=== PATIENT | female | born 1980 | race Caucasian/White ===

== ENCOUNTER 2019-05-17 18:10 | Emergency (ER) | payer OTHER ==
[~2019-05-17] VITALS: Ht 170.2 cm; Wt 106.8 kg
[2019-05-17] MEDS ORDERED: ONDANSETRON PF 4 MG/2 ML VIAL. IVP ONE (18:45)
--- NOTE | 2019-05-17 18:48 | PHYS DOC ---
Adult General Chief Complaint Chief Complaint: NAUSEA/VOMITING/DIARRHA HPI HPI 39-year-old female underlying history of liver disease with previous liver transplant presents to the emergency department complaints of abdominal pain, nausea, vomiting, diarrhea, leg edema and pain. Patient states this is been ongoing x3 weeks, she was admitted to and subsequently discharged. Her primary care physician was unhappy with the care she received at and stated that if symptoms continue to worsen she should return to the emergency department. I attempted to educate this patient with regards to emergency department visits reason for emergencies and reasons to be seen during this pandemic however she did not understand. She stated she came here because her doctor said to do so. Nothing makes her symptoms worse, nothing makes her symptoms better. Patient denies any headache or visual changes, chest pain, shortness of breath. Review of Systems Review of Systems Constitutional: Denies fever or chills [] Respiratory: Denies cough or shortness of breath [] Cardiovascular: No additional information not addressed in HPI [] GI: + abdominal pain, nausea, vomiting, diarrhea[] : Denies dysuria or hematuria [] Musculoskeletal: leg pain Integument: Denies rash or skin lesions [] Neurologic: Denies headache, focal weakness or sensory changes [] All other systems were reviewed and found to be within normal limits, except as documented in this note. Current Medications Current Medications Current Medications Medications (Trade) Dose Ordered Sig/Cait Start Time Stop Time Status Last Admin Dose Admin Ibuprofen (Motrin) 800 mg 1X ONCE 05/17/19 19:30 05/17/19 19:35 DC Ondansetron HCl (Zofran) 4 mg 1X ONCE 05/17/19 18:45 05/17/19 19:08 DC 05/17/19 19:18 4 MG Potassium Chloride (Klor-Con) 40 meq 1X ONCE 05/17/19 19:30 05/17/19 19:31 DC 05/17/19 19:37 40 MEQ Sodium Chloride 1,000 ml @ 1,000 mls/hr 1X ONCE 05/17/19 19:00 05/17/19 19:59 05/17/19 19:18 1,000 MLS/HR Allergies Allergies Allergies Coded Allergies Type Severity Reaction Last Updated Verified Iodine and Iodide Containing Produc Allergy Intermediate 05/17/19 Yes dicyclomine Allergy Intermediate 05/17/19 Yes fentanyl Allergy Intermediate 05/17/19 Yes hydrocodone Allergy Intermediate 05/17/19 Yes ketorolac Allergy Intermediate Hives 05/17/19 Yes levofloxacin Allergy Intermediate 05/17/19 Yes meperidine Allergy Intermediate 05/17/19 Yes tramadol Allergy Intermediate 05/17/19 Yes Physical Exam Physical Exam Constitutional: Well developed, well nourished, no acute distress, non-toxic appearance. [] HENT: Normocephalic, atraumatic, bilateral external ears normal, oropharynx moist, no oral exudates, nose normal. [] Eyes: PERRLA, EOMI, conjunctiva normal, no discharge. [] Cardiovascular:Heart rate regular rhythm, no murmur [] Lungs & Thorax: Bilateral breath sounds clear to auscultation [] Abdomen: Bowel sounds normal, soft, no tenderness, no masses, no pulsatile masses. [] Skin: Warm, dry, no erythema, no rash. [] Back: No tenderness, no CVA tenderness. [] Extremities: No tenderness, ROM intact, no edema. [] Neurologic: Alert and oriented X 3, no focal deficits noted. [] Psychologic: Affect normal, judgement normal, mood normal. [] Current Patient Data Vital Signs Vital Signs Date Time Temp Pulse Resp B/P (MAP) Pulse Ox O2 Delivery O2 Flow Rate FiO2 05/17/19 18:40 98.4 90 18 132/87 (102) 96 Room Air 98.4 Lab Values Laboratory Tests Test 05/17/19 18:38 05/17/19 19:00 Urine Collection Type Unknown Urine Color Yellow Urine Clarity Clear Urine pH 8.5 (<5.0-8.0) Urine Specific [place] 1.015 (1.000-1.030) Urine Protein Negative mg/dL (NEG-TRACE) Urine Glucose (UA) Negative mg/dL (NEG) Urine Ketones (Stick) Negative mg/dL (NEG) Urine Blood Negative (NEG) Urine Nitrite Negative (NEG) Urine Bilirubin Negative (NEG) Urine Urobilinogen Dipstick 1.0 mg/dL (0.2 mg/dL) Urine Leukocyte Esterase Negative (NEG) Urine RBC 0 /HPF (0-2) Urine WBC Occ /HPF (0-4) Urine Squamous Epithelial Cells Mod /LPF Urine Bacteria 0 /HPF (0-FEW) Urine Mucus Mod /LPF White Blood Count 3.6 x10^3/uL (4.0-11.0) L Red Blood Count 3.63 x10^6/uL (3.50-5.40) Hemoglobin 9.3 g/dL (12.0-15.5) L Hematocrit 29.1 % (36.0-47.0) L Mean Corpuscular Volume 80 fL (79-100) Mean Corpuscular Hemoglobin 26 pg (25-35) Mean Corpuscular Hemoglobin Concent 32 g/dL (31-37) Red Cell Distribution Width 22.7 % (11.5-14.5) H Platelet Count 183 x10^3/uL (140-400) Neutrophils (%) (Auto) 57 % (31-73) Lymphocytes (%) (Auto) 20 % (24-48) L Monocytes (%) (Auto) 20 % (0-9) H Eosinophils (%) (Auto) 3 % (0-3) Basophils (%) (Auto) 1 % (0-3) Neutrophils # (Auto) 2.1 x10^3/uL (1.8-7.7) Lymphocytes # (Auto) 0.7 x10^3/uL (1.0-4.8) L Monocytes # (Auto) 0.7 x10^3/uL (0.0-1.1) Eosinophils # (Auto) 0.1 x10^3/uL (0.0-0.7) Basophils # (Auto) 0.0 x10^3/uL (0.0-0.2) Platelet Estimate Pending Prothrombin Time 15.4 SEC (11.7-14.0) H Prothrombin Time INR 1.3 (0.8-1.1) H Sodium Level 139 mmol/L (136-145) Potassium Level 2.9 mmol/L (3.5-5.1) *L Chloride Level 103 mmol/L (98-107) Carbon Dioxide Level 24 mmol/L (21-32) Anion Gap 12 (6-14) Blood Urea Nitrogen 5 mg/dL (7-20) L Creatinine 0.8 mg/dL (0.6-1.0) Estimated GFR (Cockcroft-Gault) 79.9 BUN/Creatinine Ratio 6 (6-20) Glucose Level 84 mg/dL (70-99) Calcium Level 8.3 mg/dL (8.5-10.1) L Magnesium Level 1.3 mg/dL (1.8-2.4) L Total Bilirubin 1.4 mg/dL (0.2-1.0) H Aspartate Amino Transferase (AST) 39 U/L (15-37) H Alanine Aminotransferase (ALT) 15 U/L (14-59) Alkaline Phosphatase 191 U/L (46-116) H Total Protein 6.4 g/dL (6.4-8.2) Albumin 2.4 g/dL (3.4-5.0) L Albumin/Globulin Ratio 0.6 (1.0-1.7) L Lipase 68 U/L (73-393) L Laboratory Tests 05/17/19 19:00 Laboratory Tests 05/17/19 19:00 EKG EKG [] Radiology/Procedures Radiology/Procedures [] Course & Med Decision Making Course & Med Decision Making Pertinent Labs and Imaging studies reviewed. (See chart for details) [] 39-year-old female underlying history of liver disease with previous liver transplant presents to the emergency department complaints of abdominal pain, n ausea, vomiting, diarrhea, leg edema and pain. Patient states this is been ongoing x3 weeks, she was admitted to and subsequently discharged. Her primary care physician was unhappy with the care she received at and stated that if symptoms continue to worsen she should return to the emergency department. I attempted to educate this patient with regards to emergency department visits reason for emergencies and reasons to be seen during this pandemic however she did not understand. She stated she came here because her doctor said to do so. Nothing makes her symptoms worse, nothing makes her symptoms better. Patient denies any headache or visual changes, chest pain, shortness of breath. Labs/Imaging reviewed Potassium/Magnesium replaced in ER Patient states she is unable to take toradol or motrin - she as well has a large allergy list to pain medications KUB reviewed without acute findings Discussed return precautions Encourage po intake (liquids) Dragon Disclaimer Dragon Disclaimer This electronic medical record was generated, in whole or in part, using a voice recognition dictation system. Departure Departure Impression: Primary Impression: Nausea & vomiting Additional Impressions: Diarrhea Hypomagnesemia Hypokalemia Disposition: 01 HOME, SELF-CARE Condition: STABLE Referrals: NON,STAFF (PCP) Patient Instructions: Diarrhea, [id number], Nausea and Vomiting, [id number] Additional Instructions: Recommend fluid resuscitation at home (encourage po intake up to 100 cc/hr) - one 8 oz glass per hour NO acute findings on lab concerning for infection KUB negative for acute process Electrolytes replaced in ER Recommend follow up with PCP as outpatient No findings for acute inpatient admission Patient states she has zofran at home Problem Qualifiers Primary Impression: Nausea & vomiting Vomiting type: unspecified Vomiting Intractability: non-intractable Qualified Codes: R11.2 - Nausea with vomiting, unspecified Additional Impressions: Diarrhea Diarrhea type: unspecified type Qualified Codes: R19.7 - Diarrhea, unspecified SHANNON BO MD May 17, 2019 18:48
[2019-05-17 18:54] LABS: BILIRUBIN,URINE NEGATIVE (NEG); CLARITY,URINE CLEAR; NITRITE,URINE NEGATIVE (NEG); PH,URINE 8.5 (<5.0-8.0); PROTEIN,URINE NEGATIVE (NEG-TRACE)
[2019-05-17] MEDS ORDERED: IV NORMAL SALINE 1000ML BAG 1,000 ML IV ONE (19:00)
[2019-05-17 19:03] LABS: COLOR,URINE YELLOW
[2019-05-17 19:04] LABS: BACTERIA,URINE 0 /HPF (0-FEW); RBC,URINE 0 /HPF (0-2); SQUAMOUS EPITHELIAL CELL,UR MOD /LPF; WBC,URINE OCC /HPF (0-4)
[2019-05-17 19:10] LABS: BASO % 1 % (0-3); EOS # 0.1 x10^3/uL (0.0-0.7); EOS % 3 % (0-3); HEMATOCRIT 29.1 % (36.0-47.0); HEMOGLOBIN 9.3 g/dL (12.0-15.5); LYMPH # 0.7 x10^3/uL (1.0-4.8); LYMPH % 20 % (24-48); MEAN CORPUSCULAR HEMOGLOBIN 26 pg (25-35); MEAN CORPUSCULAR HGB CONC 32 g/dL (31-37); MEAN CORPUSCULAR VOLUME 80 fL (79-100); MONO # 0.7 x10^3/uL (0.0-1.1); MONO % 20 % (0-9); NEUT # 2.1 x10^3/uL (1.8-7.7); NEUT % 57 % (31-73); PLATELET COUNT 183 x10^3/uL (140-400); RED BLOOD COUNT 3.63 x10^6/uL (3.50-5.40); RED CELL DISTRIBUTION WIDTH 22.7 % (11.5-14.5); WHITE BLOOD COUNT 3.6 x10^3/uL (4.0-11.0)
[2019-05-17 19:19] LABS: PROTHROMBIN TIME PATIENT 15.4 SEC (11.7-14.0)
[2019-05-17 19:23] LABS: ALBUMIN 2.4 g/dL (3.4-5.0); ALBUMIN/GLOBULIN RATIO 0.6 (1.0-1.7); CALCIUM 8.3 mg/dL (8.5-10.1); CREATININE 0.8 mg/dL (0.6-1.0); GFR 79.9; TOTAL BILIRUBIN 1.4 mg/dL (0.2-1.0); TOTAL PROTEIN 6.4 g/dL (6.4-8.2)
[2019-05-17 19:25] LABS: POTASSIUM 2.9 mmol/L (3.5-5.1)
[2019-05-17] MEDS ORDERED: POTASSIUM CHLORIDE 20 MEQ TABLET.ER. PO ONE (19:30)
[2019-05-17] MEDS ORDERED: IBUPROFEN 400 MG TABLET. PO ONE (19:30)
[2019-05-17] MEDS ORDERED: MAGNESIUM CHLORIDE ER 64 MG TABLET.ER PO ONE (19:54)
[2019-05-17 20:00] VITALS: BP 132/86
[2019-05-17 20:00] LABS: % ATYL 1 % (0-0); % BANDS 2 % (0-9); % EOS 1 % (0-5); % LYMPHS 12 % (24-48); % MONOS 12 % (0-10); % SEGS 72 % (35-66); PLT ESTIMATE ADEQUATE (ADEQUATE); POLYCHROMASIA SLIGHT
[2019-05-17 20:01] LABS: ANISOCYTOSIS MOD
--- NOTE | 2019-05-17 20:10 | RAD ---
Exam: Abdomen one view INDICATION: Abdominal pain TECHNIQUE: Supine view the abdomen Comparisons: None FINDINGS: Air and stool are noted throughout the colon to level the rectum in a nonobstructive bowel gas pattern. No suspicious masses or calcifications. End-stage degenerative change at the right hip joint. Moderate to severe osteophytic change at the left hip joint. Multilevel spondylotic change in the lower lumbar spine. IMPRESSION: Nonobstructive bowel gas pattern. Degenerative change at the hip joints as described above. Electronically signed by: Louisa Hernandez MD (05/17/2019 8:07 PM) [id number]
== END 2019-05-17 20:17 | disposition home or self-care (01) ==
LOC: ER 18:10
DX: R11.2 Nausea with vomiting, unspecified (principal); R19.7 Diarrhea, unspecified; E83.42 Hypomagnesemia; E87.6 Hypokalemia; Z88.1 Allergy status to other antibiotic agents; Z88.4 Allergy status to anesthetic agent; Z88.5 Allergy status to narcotic agent; Z88.6 Allergy status to analgesic agent; Z91.041 Radiographic dye allergy status; Z88.8 Allergy status to other drugs, medicaments and biological substances
CPT/HCPCS: 36415; 74018; 80053; 81001; 83690; 83735; 85007; 85025; 85610; 96361; 96374; 99284; J2405; J7030

== ENCOUNTER 2021-01-04 17:28 | Emergency (ER) | payer OTHER ==
[~2021-01-04] VITALS: Ht 170.2 cm; Wt 104.5 kg
[~2021-01-04 17:28] MED LIST: ALBU2.5V8 INH; MAGN400T48 PO; POTA10TA12 PO; TACR1CAP5 PO
[2021-01-04] MEDS ORDERED: IV NORMAL SALINE 1000ML BAG 1,000 ML IV ONE (18:00)
--- NOTE | 2021-01-04 18:08 | PHYS DOC ---
Past Medical History Past Medical History: Asthma, CHF, IBS Additional Past Medical Histor: liver transplant 1998 (MATT ABBOTT APRN) Past Surgical History: Additional Past Surgical Histo: transplant liver 1998, shoulder and wrist (MATT ABBOTT APRN) Smoking Status: Never Smoker Alcohol Use: None (MATT ABBOTT APRN) General Adult EDM: Chief Complaint: ABDOMINAL PAIN HPI: HPI: Patient is a 40-year-old female who presents to the emergency department for chronic abdominal pain. Patient reports it is generalized and she rates it 10 out of 10. No treatment prior to arrival. Patient is reporting nausea with one episode of vomiting after attempting to swallow her pills today. She is also reporting diarrhea. She has a history of a liver transplant. She reports that the abdominal pain was so severe that it caused her to fall this morning. She is reporting right hip pain. Patient reports that she is more concerned with her abdominal pain rather than her right hip pain. She has been able to bear weight and ambulate. She denies any loss of bowel or bladder, saddle anesthesias, blood in her stools or vomit, urinary symptoms or fevers. She denies hitting her head and does not believe that she lost consciousness, she does not take any blood thinners. (MATT ABBOTT APRN) Review of Systems: Review of Systems: 14 body systems of the review of systems have been reviewed. See HPI for pertinent positive and negative responses, otherwise all other systems are negative, nonpertinent or noncontributory (MATT ABBOTT APRN) Heart Score: C/O Chest Pain: N/A Risk Factors: Risk Factors: DM, Current or recent (<one month) smoker, HTN, HLP, family history of CAD, obesity. Risk Scores: Score 0 - 3: 2.5% MACE over next 6 weeks - Discharge Home Score 4 - 6: 20.3% MACE over next 6 weeks - Admit for Clinical Observation Score 7 - 10: 72.7% MACE over next 6 weeks - Early Invasive Strategies (MATT ABBOTT APRN) Current Medications: Current Medications Medications (Trade) Dose Ordered Sig/Cait Start Time Stop Time Status Last Admin Dose Admin Sodium Chloride 1,000 ml @ 1,000 mls/hr 1X ONCE 01/04/21 18:00 01/04/21 18:59 (MATT ABBOTT APRN) Allergies: Allergies: Allergies Coded Allergies Type Severity Reaction Last Updated Verified Iodine and Iodide Containing Produc Allergy Intermediate 05/17/19 Yes dicyclomine Allergy Intermediate 05/17/19 Yes fentanyl Allergy Intermediate 05/17/19 Yes hydrocodone Allergy Intermediate 05/17/19 Yes ketorolac Allergy Intermediate Hives 05/17/19 Yes levofloxacin Allergy Intermediate 05/17/19 Yes meperidine Allergy Intermediate 05/17/19 Yes oxycodone Allergy Intermediate HIVES, HALLUCINATIONS 08/26/20 Yes tramadol Allergy Intermediate 05/17/19 Yes (MATT ABBOTT APRN) Physical Exam: PE: Constitutional: Well developed, well nourished, no acute distress, non-toxic appearance. [] HENT: Normocephalic, atraumatic, bilateral external ears normal, oropharynx moist, no oral exudates, nose normal. [] Eyes: PERRL, EOMI, conjunctiva normal, no discharge. [] Neck: Normal range of motion, n no stridor Cardiovascular:Heart rate regular rhythm, no murmur [] Lungs & Thorax: Bilateral breath sounds clear to auscultation [] Abdomen: Bowel sounds normal, soft, obese, generalized abdominal tenderness with palpation, no masses, no pulsatile masses. [] Skin: Warm, dry, no erythema, no rash. [] Back: Normal range of motion Extremities: No tenderness, no cyanosis, no clubbing, ROM intact, no edema. [] Neurologic: Alert and oriented X 3, normal motor function, normal sensory function, no focal deficits noted. [] Psychologic: Affect normal, judgement normal, mood normal. [] (MATT ABBOTT APRN) Current Patient Data: Labs: Laboratory Tests Test 01/04/21 17:44 POC Urine HCG, Qualitative Borderline hcg level (MATT ABBOTT APRN) EKG: EKG: [] (MATT ABBOTT APRN) Radiology/Procedures: Radiology/Procedures: []PROCEDURE: CT ABDOMEN PELVIS WO CONTRAST Exam: CT of abdomen and pelvis without contrast INDICATION: Diffuse abdominal pain TECHNIQUE: Sequential axial images through the abdomen and pelvis obtained without IV contrast. Sagittal and coronal reformatted images were reconstructed from the axial data and reviewed. Exposure: One or more of the following in the visualized dose reduction techniques were utilized for this examination: 1. Automated exposure control 2. Adjustment of the MA and/or KV according to patient size 3. Use of iterative of reconstructive technique Comparisons: 11/11/2020 FINDINGS: Heart size is normal. No pericardial visualized lung bases are clear. No pleural effusion. Evaluation solid organs is limited secondary to noncontrast technique. Moderate intrahepatic biliary ductal dilatation. Spleen, pancreas, and adrenals are unremarkable. Gallbladder is surgically absent. No perinephric inflammation or hydronephrosis. No renal or ureteral calculi are identified. Bladder is decompressed not well evaluated. Uterus is nonenlarged. There is a cystic lesion at the left adnexa which measures approximately 2.8 cm in diameter. Submucosal fat deposition noted in the right colon. No free intra-abdominal air or fluid. No obstruction. Abdominal aorta has a normal course and caliber. No enlarged intra-abdominal lymph nodes are identified. No suspicious osseous lesions or acute fractures. IMPRESSION: 1. No acute process identified within the abdomen or pelvis. 2. Cystic lesion at the left adnexa measuring 2.8 cm in diameter. This is favored represent cyst in the left ovary however incompletely characterized on CT. Electronically signed by: Louisa Gregg MD (01/04/2021 7:55 PM) [facility] DICTATED and SIGNED BY: LOUISA GREGG MD DATE: 01/04/21 [id number] (MATT ABBOTT APRN) Course & Med Decision Making: Course & Med Decision Making Pertinent Labs and Imaging studies reviewed. (See chart for details) Patient presents to the emergency department today for chronic abdominal pain with nausea, vomiting and diarrhea. Work-up in the ER consisted of blood work, urinalysis, CT imaging of abdomen and pelvis. Patient is reporting right hip pain after her fall today. X-ray was performed that is currently pending at this time. Patient treated with IV fluids and pain medication. Patient is [place] CT head rules indicate that a CT scan of her head was unnecessary. The unremarkable. Urinalysis unremarkable. Patient borderline hCG on urinalysis therefore they beta-hCG was performed and showed 12, and ultrasound ordered to rule out ectopic as patient has a history of a tubal ligation. CT abdomen and pelvis was negative for any acute findings although a 2.8 cm cystic lesion on the left adnexa was noted. Patient was noted to have hypokalemia and this was replaced in the emergency department. Magnesium pending at this time. I discussed patients case with MASOUD Mendoza and she will assume patient care at this time due to shift change 2054. (MATT ABBOTT APRN) Course & Med Decision Making Patient reporting an increase in pain. Patient was hesitant to do ultrasound because of her hip pain and was refusing to have ultrasound completed unless pain was controlled. Pain was treated with 4 mg morphine. ] After pelvic ultrasound was completed patient stated that her was on his way to pick her up from the hospital, and that she no longer wanted to wait for results. Discussed in length risk of leaving prior to results due to risk of possible ectopic. Patient verbalized she understood the risk and wanted to sign AMA paperwork. Patient was alert and oriented and had full medical decision making capacity. (ELIDA GABRIEL APRN) Dragon Disclaimer: Dragon Disclaimer: This electronic medical record was generated, in whole or in part, using a voice recognition dictation system. (MATT ABBOTT APRN) Departure Departure Referrals: UNKNOWN PCP NAME (PCP) MATT ABBOTT APRN Jan 04, 2021 18:08 ELIDA GABRIEL APRN Jan 04, 2021 23:59
[2021-01-04 18:13] LABS: BILIRUBIN,URINE NEGATIVE (NEG); CLARITY,URINE CLOUDY; COLOR,URINE AMBER; NITRITE,URINE NEGATIVE (NEG); PH,URINE 8.5 (<5.0-8.0); PROTEIN,URINE 30 mg/dL (NEG-TRACE)
[2021-01-04] MEDS ORDERED: MORPHINE SULFATE 2 MG/ML INJ. IVP ONE (18:15)
[2021-01-04 18:20] LABS: BARBITURATES NEG (NEG); BENZODIAZEPINES NEG (NEG); CANNABINOIDS NEG (NEG); COCAINE NEG (NEG); METHADONE NEG (NEG); OPIATES POS (NEG); PHENCYCLIDINE NEG (NEG)
[2021-01-04 18:25] LABS: AMPHETAMINE/METHAMPHETAMINE NEG (NEG)
[2021-01-04 18:26] LABS: AMORPHOUS SEDIMENT,UR PRESENT /HPF; BACTERIA,URINE FEW /HPF (0-FEW); RBC,URINE 0 /HPF (0-2); WBC,URINE OCC /HPF (0-4)
[2021-01-04] MEDS ORDERED: diphenhydrAMINE 50 MG/ML VIAL IVP ONE (18:30)
[2021-01-04] MEDS ORDERED: methylPREDNISolone SOD SUCC PF 125 MG/2 ML VIAL. IV ONE (18:30)
[2021-01-04 19:56] LABS: BASO % 1 % (0-3); EOS # 0.1 x10^3/uL (0.0-0.7); EOS % 2 % (0-3); HEMATOCRIT 39.8 % (36.0-47.0); HEMOGLOBIN 13.5 g/dL (12.0-15.5); LYMPH # 1.5 x10^3/uL (1.0-4.8); LYMPH % 31 % (24-48); MEAN CORPUSCULAR HEMOGLOBIN 29 pg (25-35); MEAN CORPUSCULAR HGB CONC 34 g/dL (31-37); MEAN CORPUSCULAR VOLUME 87 fL (79-100); MONO # 0.5 x10^3/uL (0.0-1.1); MONO % 10 % (0-9); NEUT # 2.7 x10^3/uL (1.8-7.7); NEUT % 56 % (31-73); PLATELET COUNT 227 x10^3/uL (140-400); RED BLOOD COUNT 4.58 x10^6/uL (3.50-5.40); RED CELL DISTRIBUTION WIDTH 16.7 % (11.5-14.5); WHITE BLOOD COUNT 4.9 x10^3/uL (4.0-11.0)
--- NOTE | 2021-01-04 19:58 | RAD ---
Exam: CT of abdomen and pelvis without contrast INDICATION: Diffuse abdominal pain TECHNIQUE: Sequential axial images through the abdomen and pelvis obtained without IV contrast. Sagit mark and coronal reformatted images were reconstructed from the axial data and reviewed. Exposure: One or more of the following in the visualized dose reduction techniques were utilized for this examination: 1. Automated exposure control 2. Adjustment of the MA and/or KV according to patient size 3. Use of iterative of reconstructive technique Comparisons: 11/11/2020 FINDINGS: Heart size is normal. No pericardial visualized lung bases are clear. No pleural effusion. Evaluation solid organs is limited secondary to noncontrast technique. Moderate intrahepatic biliary ductal dilatation. Spleen, pancreas, and adrenals are unremarkable. Gal lbladder is surgically absent. No perinephric inflammation or hydronephrosis. No renal or ureteral calculi are identified. Bladder is decompressed not well evaluated. Uterus is nonenlarged. There is a cystic lesion at the le ft adnexa which measures approximately 2.8 cm in diameter. Submucosal fat deposition noted in the right colon. No free intra-abdominal air or fluid. No obstruct ion. Abdominal aorta has a normal course and caliber. No enlarged intra-abdominal lymph nodes are identified. No suspicious osseous lesions or acute fractures. IMPRESSION: 1. No acute process identified within the abdomen or pelvis. 2. Cystic lesion at the left adnexa measuring 2.8 cm in diameter. This is favored represent cyst in the left ovary however incompletely characterized on CT. Electronically signed by: Louisa Hernandez MD (01/04/2021 7:55 PM) [facility]
[2021-01-04 20:20] LABS: ALBUMIN 2.8 g/dL (3.4-5.0); ALBUMIN/GLOBULIN RATIO 0.6 (1.0-1.7); CALCIUM 8.8 mg/dL (8.5-10.1); CREATININE 0.8 mg/dL (0.6-1.0); GFR 79.4; TOTAL BILIRUBIN 1.3 mg/dL (0.2-1.0); TOTAL PROTEIN 7.2 g/dL (6.4-8.2)
[2021-01-04 20:25] LABS: POTASSIUM 2.7 mmol/L (3.5-5.1)
[2021-01-04] MEDS ORDERED: POTASSIUM CHLORIDE 20 MEQ TABLET.ER. PO ONE (21:00)
--- NOTE | 2021-01-04 21:00 | RAD ---
Exam: Pelvis with right hip 2 views INDICATION: Fall TECHNIQUE: Frontal view of pelvis with frontal and frog-leg lateral views the right hip Comparisons: CT same day FINDINGS: There is end-stage osteoarthritic change at the right hip joint with osseous remodeling of the right femoral head and extensive subchondral sclerosis and osteophyte formation. Diffuse osteopenia. No dis placed fractures identified. Soft tissues are unremarkable IMPRESSION: 1. End-stage osteoarthritic change at the right hip joint. 2. Diffuse osteopenia without displaced fracture identified. If the patient is acutely unable to flaco r weight MRI to rule out occult hip fracture is recommended. Electronically signed by: Louisa Hernandez MD (01/04/2021 8:58 PM) [facility]
[2021-01-04] MEDS ORDERED: MORPHINE SULFATE 4 MG/ML INJ. IVP ONE ×2 (22:00→23:00)
[2021-01-04] MEDS ORDERED: MAGNESIUM SULFATE 2GM 50 ML IV ONE (22:00)
[2021-01-04 23:25] VITALS: BP 153/91
--- NOTE | 2021-01-04 23:31 | RAD ---
US PELVIS W/TV Clinical Indication: Reason: positive hcg, tubal ligation / Spl. Instructions: / History: Comparison: None. TECHNIQUE: Real-time ultrasound imaging of the pelvis using transabdominal and transvaginal window is performed. Findings: Limited exam due to patient body habitus. Uterus measures 6.9 x 4.7 x 2.9 cm. There is no obvious abnormality. Endometrial stripe is not well s een. No evidence of intrauterine gestational sac. The ovaries are not identified in the adnexa perhaps due to overlying bowel gas. No cul-de-sac free fluid is identified. IMPRESSION: 1. Limited exam. 2. The ovaries are not identified. 3. No obvious abnormality of the uterus. Electronically signed by: Josef Romero MD (01/04/2021 11:28 PM) [facility]
== END 2021-01-04 23:29 | disposition left against medical advice (07) ==
LOC: ER 17:28
DX: G89.29 Other chronic pain (principal); R10.84 Generalized abdominal pain; R11.2 Nausea with vomiting, unspecified; R19.7 Diarrhea, unspecified; J45.909 Unspecified asthma, uncomplicated; K58.9 Irritable bowel syndrome, unspecified; Z86.79 Personal history of other diseases of the circulatory system; Z88.1 Allergy status to other antibiotic agents; Z88.5 Allergy status to narcotic agent; Z88.4 Allergy status to anesthetic agent; Z88.6 Allergy status to analgesic agent; Z91.041 Radiographic dye allergy status; Z88.8 Allergy status to other drugs, medicaments and biological substances
CPT/HCPCS: 36415; 73502; 74176; 76830; 76856; 80053; 80307; 81001; 81025; 83690; 83735; 84702; 85025; 96365; 96375; 96376; 99285; J2270; J3475; J7030

== ENCOUNTER 2021-04-29 17:55 | Inpatient (IN) | payer OTHER ==
[~2021-04-29] VITALS: Ht 170.2 cm; Wt 101.4 kg
--- NOTE | 2021-04-29 20:55 | ED.ADGEN ---
Past Medical History Past Medical History: Asthma, CHF, IBS Additional Past Medical Histor: LIVER TRANSPLANT, OSTEOPOROSIS, Past Surgical History: , Other Additional Past Surgical Histo: LIVER TRANSPLANT, WRIST Smoking Status: Never Smoker Alcohol Use: None General Adult EDM: Chief Complaint: ABDOMINAL PAIN HPI: HPI: Patient is a 41 year old female coming into the emergency department for generalized abdominal pain, nausea, vomiting, and diarrhea for the past 2 days. Patient is a history significant for a liver transplant and states she has not been able to hold down her antirejection medications for the past 3 days. Patient denies abdominal symptom. States 2 days she had fever of 102 but is been afebrile since then. Review of Systems: Review of Systems: All other systems within normal limits except for as noted in the HPI Current Medications: Current Medications Medications (Trade) Dose Ordered Sig/Cait Start Time Stop Time Status Last Admin Dose Admin Magnesium Sulfate/ Dextrose 100 ml @ 100 mls/hr 1X ONCE 04/29/21 22:15 04/29/21 23:14 UNV Morphine Sulfate (Morphine Sulfate) 4 mg 1X ONCE 04/29/21 21:00 04/29/21 21:01 DC 04/29/21 21:09 4 MG Ondansetron HCl (Zofran) 4 mg 1X ONCE 04/29/21 21:00 04/29/21 21:01 DC 04/29/21 21:10 4 MG Potassium Bicarbonate (Potassium Effervescent Tablet) 40 meq 1X ONCE 04/29/21 22:15 04/29/21 22:16 UNV Potassium Chloride/Water 100 ml @ 100 mls/hr Q1H 04/29/21 22:15 04/30/21 00:14 UNV Sodium Chloride 500 ml @ 500 mls/hr 1X ONCE 04/29/21 21:00 04/29/21 21:59 DC 04/29/21 21:10 500 MLS/HR Allergies: Allergies: Allergies Coded Allergies Type Severity Reaction Last Updated Verified Iodine and Iodide Containing Produc Allergy Intermediate 05/17/19 Yes dicyclomine Allergy Intermediate 05/17/19 Yes fentanyl Allergy Intermediate 05/17/19 Yes hydrocodone Allergy Intermediate 05/17/19 Yes ketorolac Allergy Intermediate Hives 05/17/19 Yes levofloxacin Allergy Intermediate 05/17/19 Yes meperidine Allergy Intermediate 05/17/19 Yes oxycodone Allergy Intermediate HIVES, HALLUCINATIONS 08/26/20 Yes tramadol Allergy Intermediate 05/17/19 Yes Physical Exam: PE: Constitutional: Well developed, well nourished, no acute distress, non-toxic appearance. [] HENT: Normocephalic, atraumatic, bilateral external ears normal, nose normal. [] Eyes: PERRLA, conjunctiva normal, no discharge. [] Neck: No rigidity, supple, no stridor. [] Cardiovascular: Regular rate and rhythm, brisk cap refill [] Lungs & Thorax: Non labored symmetric respirations, no tachypnea or respiratory distress [] Abdomen: Soft, nondistended, tenderness abdominal pain with guarding. Skin: Warm, dry, no erythema, no rash. [] Back: Unremarkable Extremities: No deformities, range of motion grossly intact, no lower extremity edema [] Neurologic: Alert and oriented X 3, no focal deficits noted. [] Psychologic: Affect normal, judgement normal, mood normal. [] Current Patient Data: Labs: Laboratory Tests Test 04/29/21 21:15 White Blood Count 5.5 x10^3/uL (4.0-11.0) Red Blood Count 4.37 x10^6/uL (3.50-5.40) Hemoglobin 13.5 g/dL (12.0-15.5) Hematocrit 39.3 % (36.0-47.0) Mean Corpuscular Volume 90 fL (79-100) Mean Corpuscular Hemoglobin 31 pg (25-35) Mean Corpuscular Hemoglobin Concent 34 g/dL (31-37) Red Cell Distribution Width 15.3 % (11.5-14.5) H Platelet Count 236 x10^3/uL (140-400) Neutrophils (%) (Auto) 51 % (31-73) Lymphocytes (%) (Auto) 33 % (24-48) Monocytes (%) (Auto) 10 % (0-9) H Eosinophils (%) (Auto) 6 % (0-3) H Basophils (%) (Auto) 0 % (0-3) Neutrophils # (Auto) 2.8 x10^3/uL (1.8-7.7) Lymphocytes # (Auto) 1.8 x10^3/uL (1.0-4.8) Monocytes # (Auto) 0.6 x10^3/uL (0.0-1.1) Eosinophils # (Auto) 0.3 x10^3/uL (0.0-0.7) Basophils # (Auto) 0.0 x10^3/uL (0.0-0.2) Prothrombin Time 15.1 SEC (11.7-14.0) H Prothrombin Time INR 1.2 (0.8-1.1) H Sodium Level 139 mmol/L (136-145) Potassium Level 2.5 mmol/L (3.5-5.1) *L Chloride Level 98 mmol/L (98-107) Carbon Dioxide Level 25 mmol/L (21-32) Anion Gap 16 (6-14) H Blood Urea Nitrogen 12 mg/dL (7-20) Creatinine 1.4 mg/dL (0.6-1.0) H Estimated GFR (Cockcroft-Gault) 41.4 BUN/Creatinine Ratio 9 (6-20) Glucose Level 89 mg/dL (70-99) Calcium Level 7.8 mg/dL (8.5-10.1) L Total Bilirubin 1.6 mg/dL (0.2-1.0) H Aspartate Amino Transferase (AST) 47 U/L (15-37) H Alanine Aminotransferase (ALT) 15 U/L (14-59) Alkaline Phosphatase 258 U/L (46-116) H Total Protein 7.9 g/dL (6.4-8.2) Albumin 3.1 g/dL (3.4-5.0) L Albumin/Globulin Ratio 0.6 (1.0-1.7) L Lipase 50 U/L (73-393) L Laboratory Tests 04/29/21 21:15 Laboratory Tests 04/29/21 21:15 Vital Signs: Vital Signs Date Time Temp Pulse Resp B/P (MAP) Pulse Ox O2 Delivery O2 Flow Rate FiO2 04/29/21 21:09 Room Air 04/29/21 17:55 98.3 90 22 144/77 (99) 96 98.3 EKG: EKG: Sinus rhythm, heart rate 54 bpm, normal axis, no STEMI [] Heart Score: C/O Chest Pain: No Risk Factors: Risk Factors: DM, Current or recent (<one month) smoker, HTN, HLP, family history of CAD, obesity. Risk Scores: Score 0 - 3: 2.5% MACE over next 6 weeks - Discharge Home Score 4 - 6: 20.3% MACE over next 6 weeks - Admit for Clinical Observation Score 7 - 10: 72.7% MACE over next 6 weeks - Early Invasive Strategies Radiology/Procedures: Radiology/Procedures: [facility] [address] [place] [address] IMAGING REPORT Signed PATIENT: KWAN OLIVASUNT: [id number] : 1980 LOCATION: ER AGE: 41 SEX: F EXAM STATUS: REG ER ORD. PHYSICIAN: SHILPA MONTEMAYOR MD REASON: abd pain PROCEDURE: CT ABDOMEN PELVIS WO CONTRAST Exam: CT of abdomen and pelvis without contrast INDICATION: Abdominal pain TECHNIQUE: Sequential axial images through the abdomen and pelvis obtained without IV contrast. Sagittal and coronal reformatted images were reconstructed from the axial data and reviewed. Exposure: One or more of the following in the visualized dose reduction techniques were utilized for this examination: 1. Automated exposure control 2. Adjustment of the MA and/or KV according to patient size 3. Use of iterative of reconstructive technique Comparisons: 01/04/2021 FINDINGS: Heart size is normal. No pericardial effusion. Visualized lung bases are clear. No pleural effusion. Diffuse hepatic steatosis. Moderate pneumobilia. Spleen, pancreas, and adrenals are unremarkable. Gallbladder surgically absent. No perinephric inflammation or hydronephrosis. No renal or ureteral calculi are identified. Bladder is partially distended and not well evaluated. Uterus is not enlarged. No abnormal adnexal mass. Large and small bowel are unremarkable. Appendix not identified. No free intra-abdominal air or fluid. No obstruction. Abdominal aorta has normal course and caliber. No enlarged intra-abdominal lymph nodes are identified. No suspicious osseous lesions or acute fractures. IMPRESSION: No acute process identified within the abdomen or pelvis. Electronically signed by: Louisa Gregg MD (04/29/2021 9:55 PM) [facility] DICTATED and SIGNED BY: LOUISA GREGG MD DATE: 04/29/21 [id number] [] Course & Med Decision Making: Course & Med Decision Making Pertinent Labs and Imaging studies reviewed. (See chart for details) Magnesium and potassium given in emergency department admitted to hospitalist. [] Dragon Disclaimer: Dragon Disclaimer: This electronic medical record was generated, in whole or in part, using a voice recognition dictation system. Departure Departure Impression: Primary Impression: Hypokalemia Additional Impression: Nausea, vomiting, and diarrhea Disposition: ADMITTED INPATIENT Admitting Physician: LOPEZ Condition: STABLE Referrals: UNKNOWN PCP NAME (PCP) Problem Qualifiers SHILPA MONTEMAYOR MD Apr 29, 2021 20:55
[2021-04-29] MEDS ORDERED: MORPHINE SULFATE 4 MG/ML INJ. IV ONE (21:00)
[2021-04-29] MEDS ORDERED: IV NORMAL SALINE 500ML BAG 500 ML IV ONE (21:00)
[2021-04-29] MEDS ORDERED: ONDANSETRON PF 4 MG/2 ML VIAL. IVP ONE (21:00)
[2021-04-29 21:24] LABS: BASO % 0 % (0-3); EOS # 0.3 x10^3/uL (0.0-0.7); EOS % 6 % (0-3); HEMATOCRIT 39.3 % (36.0-47.0); HEMOGLOBIN 13.5 g/dL (12.0-15.5); LYMPH # 1.8 x10^3/uL (1.0-4.8); LYMPH % 33 % (24-48); MEAN CORPUSCULAR HEMOGLOBIN 31 pg (25-35); MEAN CORPUSCULAR HGB CONC 34 g/dL (31-37); MEAN CORPUSCULAR VOLUME 90 fL (79-100); MONO # 0.6 x10^3/uL (0.0-1.1); MONO % 10 % (0-9); NEUT # 2.8 x10^3/uL (1.8-7.7); NEUT % 51 % (31-73); PLATELET COUNT 236 x10^3/uL (140-400); RED BLOOD COUNT 4.37 x10^6/uL (3.50-5.40); RED CELL DISTRIBUTION WIDTH 15.3 % (11.5-14.5); WHITE BLOOD COUNT 5.5 x10^3/uL (4.0-11.0)
[2021-04-29 21:41] LABS: PROTHROMBIN TIME PATIENT 15.1 SEC (11.7-14.0)
[2021-04-29 21:53] LABS: ALBUMIN 3.1 g/dL (3.4-5.0); ALBUMIN/GLOBULIN RATIO 0.6 (1.0-1.7); CALCIUM 7.8 mg/dL (8.5-10.1); CREATININE 1.4 mg/dL (0.6-1.0); GFR 41.4; TOTAL BILIRUBIN 1.6 mg/dL (0.2-1.0); TOTAL PROTEIN 7.9 g/dL (6.4-8.2)
[2021-04-29 21:58] LABS: POTASSIUM 2.5 mmol/L (3.5-5.1)
--- NOTE | 2021-04-29 21:58 | RAD ---
Exam: CT of abdomen and pelvis without contrast INDICATION: Abdominal pain TECHNIQUE: Sequential axial images through the abdomen and pelvis obtained without IV contrast. Sagit mark and coronal reformatted images were reconstructed from the axial data and reviewed. Exposure: One or more of the following in the visualized dose reduction techniques were utilized for this examination: 1. Automated exposure control 2. Adjustment of the MA and/or KV according to patient size 3. Use of iterative of reconstructive technique Comparisons: 01/04/2021 FINDINGS: Heart size is normal. No pericardial effusion. Visualized lung bases are clear. No pleural effusion. Diffuse hepatic steatosis. Moderate pneumobilia. Spleen, pancreas, and adrenals are unremarkable. Gal lbladder surgically absent. No perinephric inflammation or hydronephrosis. No renal or ureteral calculi are identified. Bladder is partially distended and not well evaluated. Uterus is not enlarged. No abnormal adnexal ma ss. Large and small bowel are unremarkable. Appendix not identified. No free intra-abdominal air or fluid. No obstruction. Abdominal aorta has normal course and caliber. No enlarged intra-abdominal lymph nodes are identified. No suspicious osseous lesions or acute fractures. IMPRESSION: No acute process identified within the abdomen or pelvis. Electronically signed by: Louisa Hernandez MD (04/29/2021 9:55 PM) [facility]
[2021-04-29] MEDS ORDERED: POTASSIUM BICARB 20 MEQ EFFERVESCENT TABLET. PO ONE (22:15)
[2021-04-29] MEDS ORDERED: MAGNESIUM SULFATE 1GM 100 ML IV ONE (22:15)
[2021-04-29] MEDS: IV NORMAL SALINE 1000ML BAG 1,000 ML IV SCH (22:23)
[2021-04-29] MEDS: POTASSIUM CHLORIDE 20MEQ 100 ML IV SCH (22:37)
[2021-04-29] MEDS: MORPHINE SULFATE 4 MG/ML INJ. IVP PRN (23:40)
[2021-04-30] VITALS (7 sets, daily range): BP systolic 114–141; BP diastolic 53–83
[2021-04-30] MEDS: POTASSIUM CHLORIDE 20MEQ 100 ML IV SCH (00:15)
[2021-04-30] MEDS ORDERED: AMLO-186 PO (02:48)
[2021-04-30] MEDS: MORPHINE SULFATE 4 MG/ML INJ. IVP PRN ×6 (02:59→20:53)
[2021-04-30] MEDS: ONDANSETRON PF 4 MG/2 ML VIAL. IVP PRN ×5 (02:59→20:52)
[2021-04-30 07:07] LABS: BASO # 0.1 x10^3/uL (0.0-0.2); BASO % 1 % (0-3); EOS # 0.3 x10^3/uL (0.0-0.7); EOS % 6 % (0-3); HEMATOCRIT 35.9 % (36.0-47.0); HEMOGLOBIN 12.1 g/dL (12.0-15.5); LYMPH # 1.8 x10^3/uL (1.0-4.8); LYMPH % 35 % (24-48); MEAN CORPUSCULAR HEMOGLOBIN 31 pg (25-35); MEAN CORPUSCULAR HGB CONC 34 g/dL (31-37); MEAN CORPUSCULAR VOLUME 91 fL (79-100); MONO # 0.5 x10^3/uL (0.0-1.1); MONO % 10 % (0-9); NEUT # 2.5 x10^3/uL (1.8-7.7); NEUT % 48 % (31-73); PLATELET COUNT 212 x10^3/uL (140-400); RED BLOOD COUNT 3.96 x10^6/uL (3.50-5.40); RED CELL DISTRIBUTION WIDTH 15.5 % (11.5-14.5); WHITE BLOOD COUNT 5.2 x10^3/uL (4.0-11.0)
[2021-04-30 07:54] LABS: ALBUMIN 2.7 g/dL (3.4-5.0); ALBUMIN/GLOBULIN RATIO 0.7 (1.0-1.7); CALCIUM 7.1 mg/dL (8.5-10.1); CREATININE 1.3 mg/dL (0.6-1.0); GFR 45.1; TOTAL BILIRUBIN 1.3 mg/dL (0.2-1.0); TOTAL PROTEIN 6.8 g/dL (6.4-8.2)
[2021-04-30] MEDS: IV NORMAL SALINE 1000ML BAG 1,000 ML IV SCH (07:59)
[2021-04-30 10:09] LABS: CLARITY,URINE CLEAR; COLOR,URINE YELLOW
[2021-04-30 10:10] LABS: BACTERIA,URINE FEW /HPF (0-FEW); BILIRUBIN,URINE NEGATIVE (NEG); NITRITE,URINE NEGATIVE (NEG); PH,URINE 6.5 (<5.0-8.0); PROTEIN,URINE NEGATIVE (NEG-TRACE); RBC,URINE OCC /HPF (0-2); UROBILINOGEN,URINE 0.2 mg/dL (0.2 mg/dL); WBC,URINE OCC /HPF (0-4)
[2021-04-30 10:11] LABS: YEAST,URINE PRESENT /HPF
--- NOTE | 2021-04-30 10:14 | PDOC ---
GENERAL General: History and physical [id number] VITAL SIGNS Vital Signs/I&O: Vital Signs Date Time Temp Pulse Resp B/P (MAP) Pulse Ox O2 Delivery O2 Flow Rate FiO2 04/30/21 09:39 20 90 04/30/21 07:00 97.8 77 123/53 (76) Room Air 97.8 I & O 04/29/21 04/29/21 04/30/21 15:00 23:00 07:00 Intake Total 1980 ml Balance 1980 ml ALLERGIES Allergies: Allergies Coded Allergies Type Severity Reaction Last Updated Verified Iodine and Iodide Containing Produc Allergy Intermediate 05/17/19 Yes dicyclomine Allergy Intermediate 05/17/19 Yes fentanyl Allergy Intermediate 05/17/19 Yes hydrocodone Allergy Intermediate 05/17/19 Yes ketorolac Allergy Intermediate Hives 05/17/19 Yes levofloxacin Allergy Intermediate 05/17/19 Yes meperidine Allergy Intermediate 05/17/19 Yes oxycodone Allergy Intermediate HIVES, HALLUCINATIONS 08/26/20 Yes tramadol Allergy Intermediate 05/17/19 Yes MEDS Medications: Current Medications Medications (Trade) Dose Ordered Sig/Cait Route PRN Reason Start Time Stop Time Status Last Admin Dose Admin Morphine Sulfate (Morphine Sulfate) 4 mg 1X ONCE IV 04/29/21 21:00 04/29/21 21:01 DC 04/29/21 21:09 Ondansetron HCl (Zofran) 4 mg 1X ONCE IVP 04/29/21 21:00 04/29/21 21:01 DC 04/29/21 21:10 Sodium Chloride 500 ml @ 500 mls/hr 1X ONCE IV 04/29/21 21:00 04/29/21 21:59 DC 04/29/21 21:10 Potassium Bicarbonate (Potassium Effervescent Tablet) 40 meq 1X ONCE PO 04/29/21 22:15 04/29/21 22:16 DC 04/29/21 22:38 Potassium Chloride/Water 100 ml @ 50 mls/hr Q2H IV 04/29/21 22:15 04/30/21 02:14 DC 04/30/21 00:15 Magnesium Sulfate/ Dextrose 100 ml @ 100 mls/hr 1X ONCE IV 04/29/21 22:15 04/29/21 23:14 DC 04/30/21 02:00 Ondansetron HCl (Zofran) 4 mg PRN Q8HRS PRN IVP NAUSEA/VOMITING 04/29/21 22:15 04/30/21 10:01 DC 04/30/21 07:59 Morphine Sulfate (Morphine Sulfate) 4 mg PRN Q2HR PRN IVP PAIN 04/29/21 22:15 04/30/21 22:14 04/30/21 09:21 Sodium Chloride 1,000 ml @ 75 mls/hr [id number] IV 04/29/21 22:15 04/30/21 22:14 04/30/21 07:59 LAB Lab: Laboratory Tests Test 04/29/21 21:15 04/30/21 06:00 04/30/21 09:10 White Blood Count 5.5 x10^3/uL (4.0-11.0) 5.2 x10^3/uL (4.0-11.0) Red Blood Count 4.37 x10^6/uL (3.50-5.40) 3.96 x10^6/uL (3.50-5.40) Hemoglobin 13.5 g/dL (12.0-15.5) 12.1 g/dL (12.0-15.5) Hematocrit 39.3 % (36.0-47.0) 35.9 % (36.0-47.0) L Mean Corpuscular Volume 90 fL (79-100) 91 fL (79-100) Mean Corpuscular Hemoglobin 31 pg (25-35) 31 pg (25-35) Mean Corpuscular Hemoglobin Concent 34 g/dL (31-37) 34 g/dL (31-37) Red Cell Distribution Width 15.3 % (11.5-14.5) H 15.5 % (11.5-14.5) H Platelet Count 236 x10^3/uL (140-400) 212 x10^3/uL (140-400) Neutrophils (%) (Auto) 51 % (31-73) 48 % (31-73) Lymphocytes (%) (Auto) 33 % (24-48) 35 % (24-48) Monocytes (%) (Auto) 10 % (0-9) H 10 % (0-9) H Eosinophils (%) (Auto) 6 % (0-3) H 6 % (0-3) H Basophils (%) (Auto) 0 % (0-3) 1 % (0-3) Neutrophils # (Auto) 2.8 x10^3/uL (1.8-7.7) 2.5 x10^3/uL (1.8-7.7) Lymphocytes # (Auto) 1.8 x10^3/uL (1.0-4.8) 1.8 x10^3/uL (1.0-4.8) Monocytes # (Auto) 0.6 x10^3/uL (0.0-1.1) 0.5 x10^3/uL (0.0-1.1) Eosinophils # (Auto) 0.3 x10^3/uL (0.0-0.7) 0.3 x10^3/uL (0.0-0.7) Basophils # (Auto) 0.0 x10^3/uL (0.0-0.2) 0.1 x10^3/uL (0.0-0.2) Prothrombin Time 15.1 SEC (11.7-14.0) H Prothrombin Time INR 1.2 (0.8-1.1) H Sodium Level 139 mmol/L (136-145) 137 mmol/L (136-145) Potassium Level 2.5 mmol/L (3.5-5.1) *L 3.0 mmol/L (3.5-5.1) L Chloride Level 98 mmol/L (98-107) 100 mmol/L (98-107) Carbon Dioxide Level 25 mmol/L (21-32) 25 mmol/L (21-32) Anion Gap 16 (6-14) H 12 (6-14) Blood Urea Nitrogen 12 mg/dL (7-20) 12 mg/dL (7-20) Creatinine 1.4 mg/dL (0.6-1.0) H 1.3 mg/dL (0.6-1.0) H Estimated GFR (Cockcroft-Gault) 41.4 45.1 BUN/Creatinine Ratio 9 (6-20) 9 (6-20) Glucose Level 89 mg/dL (70-99) 92 mg/dL (70-99) Calcium Level 7.8 mg/dL (8.5-10.1) L 7.1 mg/dL (8.5-10.1) L Magnesium Level 1.1 mg/dL (1.8-2.4) L Total Bilirubin 1.6 mg/dL (0.2-1.0) H 1.3 mg/dL (0.2-1.0) H Aspartate Amino Transferase (AST) 47 U/L (15-37) H 50 U/L (15-37) H Alanine Aminotransferase (ALT) 15 U/L (14-59) 16 U/L (14-59) Alkaline Phosphatase 258 U/L (46-116) H 227 U/L (46-116) H Total Protein 7.9 g/dL (6.4-8.2) 6.8 g/dL (6.4-8.2) Albumin 3.1 g/dL (3.4-5.0) L 2.7 g/dL (3.4-5.0) L Albumin/Globulin Ratio 0.6 (1.0-1.7) L 0.7 (1.0-1.7) L Lipase 50 U/L (73-393) L Urine Collection Type Unknown Urine Color Yellow Urine Clarity Clear Urine pH 6.5 (<5.0-8.0) Urine Specific [place] 1.010 (1.000-1.030) Urine Protein Negative mg/dL (NEG-TRACE) Urine Glucose (UA) Negative mg/dL (NEG) Urine Ketones (Stick) Negative mg/dL (NEG) Urine Blood Trace (NEG) Urine Nitrite Negative (NEG) Urine Bilirubin Negative (NEG) Urine Urobilinogen Dipstick 0.2 mg/dL (0.2 mg/dL) Urine Leukocyte Esterase Negative (NEG) Urine RBC Occ /HPF (0-2) Urine WBC Occ /HPF (0-4) Urine Squamous Epithelial Cells Many /LPF Urine Bacteria Few /HPF (0-FEW) Urine Yeast Present /HPF Laboratory Tests 04/29/21 21:15 04/30/21 06:00 Laboratory Tests 04/29/21 21:15 04/30/21 06:00 Justifications for Admission Other Justification BRUCE HERRING MD Apr 30, 2021 10:14
[2021-04-30] MEDS ORDERED: ALBUTEROL SULFATE 2.5 MG/3 ML NEBU. INH PRN (10:15)
--- NOTE | 2021-04-30 11:14 | HP ---
DATE OF SERVICE: 04/30/2021 ADMIT DATE: 04/29/2021 HISTORY OF PRESENT ILLNESS: This patient is a 41-year-old woman who is a continuity outpatient of Dr. Emile Burroughs at [facility]. 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 She followed with Dr. Hathaway for 18 years until his departure from 5 years ago. She tells me that his departure was very difficult on her and she was not able to get used any of the other doctors there. She had a baby girl born 5 years ago and had some complications and felt that she was mistreated by the Hepatology consult as an inpatient. Because of that, she has not followed with Hepatology at all and tells me that her primary care doctor has been prescribing her tacrolimus. She has had 2 days of profuse vomiting and is unable to keep up with hydration or nutrition. She denies any abdominal pain, no fever or chills, no change in bowel habits, which are normal. She did not have any preceding symptoms. She is not sure what triggered this. She does not remember when she last had labs assessing her therapeutic levels of her tacrolimus. She came here because she lives in [place] and this hospital is closer. This morning, the patient tells me that she is feeling a lot better and has not had any nausea on the antiemetics. She tolerated a clear liquid diet since admission and is ready to advance to full liquid. Again, this morning, she denies any fever, chills, cough, congestion, palpitations or abdominal pain. Her family is feeling well. They have not had any recent travel. She and her are vaccinated for COVID with the last Pfizer vaccine completed in 09/2020. Their children are not vaccinated yet and again they are feeling well. The patient does tell me that she has had a near complete loss of her vision in the last year and has an upcoming Ophthalmology appointment at [facility] [place]. She does not remember the name of the doctor. All other systems reviewed and negative. PAST MEDICAL HISTORY: 1. 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 She does not have any other details of the transplant, does tell me that she had a near rejection in 2004. She worked with Dr. Hathaway, Hepatology at for years and was very upset when he left the practice 5 years ago. 2. 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 3. Poor dentition. MEDICATIONS: Please see the medication reconciliation form. SOCIAL HISTORY: The patient is happily . She lives independently in her own home. 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 She does not take any tobacco, alcohol or illicit drugs. The patient is a full code. FAMILY HISTORY: Reviewed in full and noncontributory to the present illness. PHYSICAL EXAMINATION: VITAL SIGNS: Reviewed since admission and are notable for that the patient has been afebrile, blood pressure has been in the 120s/50s, heart rate is in the 80s-90s and regular. She is breathing comfortably and saturating normally on room air. GENERAL: She is a pleasant 41-year-old woman, a little tearful at times during the visit, but pleasant and appropriately interactive, alert and oriented x 3, no acute distress. HEENT: Notable for poor dentition. NECK: Soft and supple. No adenopathy or thyromegaly noted. CHEST: Clear to auscultation. HEART: S1, S2 normal. Regular rate and rhythm. No murmurs or gallops are noted. ABDOMEN: Obese. Normoactive bowel sounds, soft, nontender, nondistended. No masses or organomegaly noted. EXTREMITIES: Unremarkable for acute abnormality. LABORATORY AND OTHER STUDIES: Admission white count is 5.2, hemoglobin is 12.1, platelet count is 212. Chemistry panel is notable on admission for a potassium level of 2.5, now 3.0 after replacement this morning. Creatinine is about 1.5. Liver function tests are mildly elevated, alkaline phosphatase is 227 this morning. Serum albumin is 2.7. INR is 1.2. CT abdomen and pelvis is unremarkable for acute abnormality. Moderate pneumobilia is noted. Diffuse hepatic steatosis noted. Spleen, pancreas and adrenals are unremarkable. Gallbladder surgically absent. No renal abnormalities are noted. Unremarkable CT abdomen. ASSESSMENT AND PLAN: Impression: A 41-year-old woman with a history of liver transplant 23 years ago secondary to congenital abnormality, admitted with diffuse vomiting. Her tacrolimus level is pending. We will check that and then dose her antirejection medication. She tells me that she is fully adherent to her plan. It does concern me that she has not had any hepatology care in the last 5 years. It sounds like there was an issue with compliance with followup at the time of the of her daughter [address] Hathaway left the practice. Concern of course would be for liver rejection. I have consulted our GI team and let the patient know that while we do not have administrative assistant here at [facility], the GI team is excellent and can get her started with recommendations for this presentation. We will continue her intravenous hydration, potassium supplementation, and advancement of diet as tolerated. Inpatient status would be most appropriate as we anticipate a length of stay of at least 2-3 midnights while we work this through. The patient can have SCDs for DVT prophylaxis. She is up and moving about the room. ALLEN/TEZ DR: Puma TID: [id number] CC: DO MARILUZ Villegas
[2021-04-30] MEDS: MAGNESIUM OXIDE 400 MG TABLET PO SCH (12:27)
[2021-04-30] MEDS: TACROLIMUS 0.5 MG CAPSULE. PO SCH ×2 (12:27→20:09)
--- NOTE | 2021-04-30 14:07 | PDOC2 ---
GI CONSULT Reason For Consult: nausea, vomiting, diarrhea HPI: HPI: 41-year-old woman who is sp OLT for congenital biliary atresia 1998 currently with no heptology followup who was admitted for nausea, vomiting diarrhea. CT was unrevealing. Labs demonstrated elevated L:FTs with AST 50, ALT 16, alk phos 226 and T bili 1.3. She has not had any diarrhea since her arrival to [place] and tolerated a solid lunch today She is on Prograf and denies recent level check PMH: PMH: PMH: H/o biliary atresia s/p liver transplant at at age 18 w/ rejection issues in 2004 and h/o liver stones requiring drainage ~14 years ago on Prograf, currently not followed by hepatology because the doctors at were rude and her wouldn't stand for that. Her PCP, Dr. Burroughs, has referred her to see a flatwork ironer in [place]. H/o GERD improved w/ OTC medications PRN. No dysphagia, hematemesis, hematochezia, melena, constipation, or weight loss. Reports normal EGD and colonoscopy ~5 years ago "but I usually have them every year." S/p cholecystectomy, SBR, and IBS. CHF liver transplant, cholecystectomy, appendectomy, x 2, tubal ligation, small bowel resection, left wrist surgery w/ hardware FH: Family History: No pertinent hx Social History: Smoke: Quit ALCOHOL: none FH: Family History: No pertinent hx Social History: ALCOHOL: none Drugs: None ROS: GEN: Denies fevers, chills, sweats HEENT: Denies blurred vision, sore throat CV: Denies chest pain RESP: Denies shortness of air, cough GI: Per HPI : Denies hematuria, dysuria ENDO: Denies weight changes NEURO: Denies confusion, dizziness MSK: Denies weakness, joint pain/swelling SKIN: Denies jaundice, pruritus VItals: Vitals: Vital Signs Date Time Temp Pulse Resp B/P (MAP) Pulse Ox O2 Delivery O2 Flow Rate FiO2 04/30/21 13:09 20 96 04/30/21 10:53 97.8 90 141/83 (102) Room Air 97.8 Labs: Labs: Laboratory Tests Test 04/29/21 21:15 04/30/21 06:00 04/30/21 09:10 White Blood Count 5.5 x10^3/uL (4.0-11.0) 5.2 x10^3/uL (4.0-11.0) Red Blood Count 4.37 x10^6/uL (3.50-5.40) 3.96 x10^6/uL (3.50-5.40) Hemoglobin 13.5 g/dL (12.0-15.5) 12.1 g/dL (12.0-15.5) Hematocrit 39.3 % (36.0-47.0) 35.9 % (36.0-47.0) Mean Corpuscular Volume 90 fL (79-100) 91 fL (79-100) Mean Corpuscular Hemoglobin 31 pg (25-35) 31 pg (25-35) Mean Corpuscular Hemoglobin Concent 34 g/dL (31-37) 34 g/dL (31-37) Red Cell Distribution Width 15.3 % (11.5-14.5) 15.5 % (11.5-14.5) Platelet Count 236 x10^3/uL (140-400) 212 x10^3/uL (140-400) Neutrophils (%) (Auto) 51 % (31-73) 48 % (31-73) Lymphocytes (%) (Auto) 33 % (24-48) 35 % (24-48) Monocytes (%) (Auto) 10 % (0-9) 10 % (0-9) Eosinophils (%) (Auto) 6 % (0-3) 6 % (0-3) Basophils (%) (Auto) 0 % (0-3) 1 % (0-3) Neutrophils # (Auto) 2.8 x10^3/uL (1.8-7.7) 2.5 x10^3/uL (1.8-7.7) Lymphocytes # (Auto) 1.8 x10^3/uL (1.0-4.8) 1.8 x10^3/uL (1.0-4.8) Monocytes # (Auto) 0.6 x10^3/uL (0.0-1.1) 0.5 x10^3/uL (0.0-1.1) Eosinophils # (Auto) 0.3 x10^3/uL (0.0-0.7) 0.3 x10^3/uL (0.0-0.7) Basophils # (Auto) 0.0 x10^3/uL (0.0-0.2) 0.1 x10^3/uL (0.0-0.2) Prothrombin Time 15.1 SEC (11.7-14.0) Prothromb Time International Ratio 1.2 (0.8-1.1) Sodium Level 139 mmol/L (136-145) 137 mmol/L (136-145) Potassium Level 2.5 mmol/L (3.5-5.1) 3.0 mmol/L (3.5-5.1) Chloride Level 98 mmol/L (98-107) 100 mmol/L (98-107) Carbon Dioxide Level 25 mmol/L (21-32) 25 mmol/L (21-32) Anion Gap 16 (6-14) 12 (6-14) Blood Urea Nitrogen 12 mg/dL (7-20) 12 mg/dL (7-20) Creatinine 1.4 mg/dL (0.6-1.0) 1.3 mg/dL (0.6-1.0) Estimated GFR (Cockcroft-Gault) 41.4 45.1 BUN/Creatinine Ratio 9 (6-20) 9 (6-20) Glucose Level 89 mg/dL (70-99) 92 mg/dL (70-99) Calcium Level 7.8 mg/dL (8.5-10.1) 7.1 mg/dL (8.5-10.1) Magnesium Level 1.1 mg/dL (1.8-2.4) Total Bilirubin 1.6 mg/dL (0.2-1.0) 1.3 mg/dL (0.2-1.0) Aspartate Amino Transf (AST/SGOT) 47 U/L (15-37) 50 U/L (15-37) Alanine Aminotransferase (ALT/SGPT) 15 U/L (14-59) 16 U/L (14-59) Alkaline Phosphatase 258 U/L (46-116) 227 U/L (46-116) Total Protein 7.9 g/dL (6.4-8.2) 6.8 g/dL (6.4-8.2) Albumin 3.1 g/dL (3.4-5.0) 2.7 g/dL (3.4-5.0) Albumin/Globulin Ratio 0.6 (1.0-1.7) 0.7 (1.0-1.7) Lipase 50 U/L (73-393) Urine Collection Type Unknown Urine Color Yellow Urine Clarity Clear Urine pH 6.5 (<5.0-8.0) Urine Specific Mcdonough 1.010 (1.000-1.030) Urine Protein Negative mg/dL (NEG-TRACE) Urine Glucose (UA) Negative mg/dL (NEG) Urine Ketones (Stick) Negative mg/dL (NEG) Urine Blood Trace (NEG) Urine Nitrite Negative (NEG) Urine Bilirubin Negative (NEG) Urine Urobilinogen Dipstick 0.2 mg/dL (0.2 mg/dL) Urine Leukocyte Esterase Negative (NEG) Urine RBC Occ /HPF (0-2) Urine WBC Occ /HPF (0-4) Urine Squamous Epithelial Cells Many /LPF Urine Bacteria Few /HPF (0-FEW) Urine Yeast Present /HPF Imaging: Imaging: [facility] [address] [facility] [place] [address] IMAGING REPORT Signed PATIENT: KWAN OLIVAS MACCOUNT: [id number] : 1980 LOCATION: ER AGE: 41 SEX: F EXAM STATUS: REG ER ORD. PHYSICIAN: SHILPA MONTEMAYOR MD REASON: abd pain PROCEDURE: CT ABDOMEN PELVIS WO CONTRAST Exam: CT of abdomen and pelvis without contrast INDICATION: Abdominal pain TECHNIQUE: Sequential axial images through the abdomen and pelvis obtained without IV contrast. Sagittal and coronal reformatted images were reconstructed from the axial data and reviewed. Exposure: One or more of the following in the visualized dose reduction techniques were utilized for this examination: 1. Automated exposure control 2. Adjustment of the MA and/or KV according to patient size 3. Use of iterative of reconstructive technique Comparisons: 01/04/2021 FINDINGS: Heart size is normal. No pericardial effusion. Visualized lung bases are clear. No pleural effusion. Diffuse hepatic steatosis. Moderate pneumobilia. Spleen, pancreas, and adrenals are unremarkable. Gallbladder surgically absent. No perinephric inflammation or hydronephrosis. No renal or ureteral calculi are identified. Bladder is partially distended and not well evaluated. Uterus is not enlarged. No abnormal adnexal mass. Large and small bowel are unremarkable. Appendix not identified. No free intra-abdominal air or fluid. No obstruction. Abdominal aorta has normal course and caliber. No enlarged intra-abdominal lymph nodes are identified. No suspicious osseous lesions or acute fractures. IMPRESSION: No acute process identified within the abdomen or pelvis. Electronically signed by: Louisa Hernandez MD (04/29/2021 9:55 PM) [facility] PE: GEN: NAD HEENT: very poor dentition LUNGS: CTAB HEART: RRR ABD: surgical scars, large, non-specific discomfort (mild) EXTREMITY: No edema SKIN: No rashes, no jaundice NEURO/PSYCH: A & O 3 A/P: A/P: A Nausea, abd pain, diarrhea, dizziness S/p liver transplant on Prograf GERD CRC screen - colonoscopy normal in the past H/o IBS S/p cholecystectomy S/p SBR P 1) Cont prn nausea meds 2) Await prograf level 3) If diarrhea resumes, check stool 4) monitor LFTs JHONY VAZQUEZ MD Apr 30, 2021 14:07
[2021-04-30] MEDS: POTASSIUM CHLORIDE 10 MEQ TABLET.ER. PO SCH (20:09)
--- NOTE | 2021-05-01 00:57 | EKG ---
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
[2021-05-01] MEDS: ONDANSETRON PF 4 MG/2 ML VIAL. IVP PRN ×2 (02:31→10:18)
[2021-05-01 02:39] VITALS: BP 107/74
[2021-05-01] MEDS: MORPHINE SULFATE 2 MG/ML INJ. IVP PRN ×2 (03:28→08:57)
[2021-05-01 07:00] VITALS: BP 124/70
[2021-05-01] MEDS: MAGNESIUM OXIDE 400 MG TABLET PO SCH (08:56)
[2021-05-01] MEDS: TACROLIMUS 0.5 MG CAPSULE. PO SCH ×2 (08:56→21:18)
[2021-05-01] MEDS: POTASSIUM CHLORIDE 10 MEQ TABLET.ER. PO SCH (08:57)
[2021-05-01 11:00] VITALS: BP 128/78
--- NOTE | 2021-05-01 12:56 | PDOC ---
Date of Service: DATE: 05/01/21 TIME: 12:54 Subjective: Subjective: tolerating po Objective: Vital Signs: Vital Signs Date Time Temp Pulse Resp B/P (MAP) Pulse Ox O2 Delivery O2 Flow Rate FiO2 05/01/21 08:57 19 Room Air 05/01/21 08:57 79 124/70 05/01/21 07:00 98.6 96 98.6 Labs: no labs today Physical Exam: Physical Exam: GEN: NAD HEENT: OP clear CV: S1S2 without murmurs, rubs, or gallops RESP: CTAB without wheezing, rhonchi, or crackles ABD: NABS, SNT/ND EXT: No edema NEURO: AAO x 3 Assessment & Plan: Assessment : A Nausea, abd pain, diarrhea, dizziness S/p liver transplant on Prograf GERD CRC screen - colonoscopy normal in the past H/o IBS S/p cholecystectomy S/p SBR Plan: P 1) Cont prn nausea meds 2) Await prograf level 3) If diarrhea resumes, check stool 4) monitor LFTs 5) needs to folowup up with hepatology 6) recheck potassium today Justicifation of Admission Dx: Justifications for Admission: Justification of Admission Dx: Yes JHONY VAZQUEZ MD May 01, 2021 12:56
--- NOTE | 2021-05-01 13:09 | PDOC ---
GENERAL General: Patient examined chart reviewed discussed with GI physician Dr. Rosalie Almaraz, her assistance is appreciated. Patient has had no events overnight. No further diarrhea noted. She continues to have abdominal cramping and some pain. She says she is nauseated but is tolerating what she is eating she has not had any vomiting. She is concerned about eating her lunch today because she does not think she will be able to handle it. She is also concerned about going home and then potentially turning around and having to come back. She tells me that the hepatology group has not accepted her back in care they have tried and her primary care physician has worked on trying to get her back in there as well. I mentioned [facility] hepatology and she thought that might be a good idea though told Dr. Almaraz that she does not believe she can go there either. We will transition her medications from intravenous to oral so that she will have a better idea on how she will feel once she discharges home. She has not used ondansetron at home that does seem to help. She is trying to minimize the narco tics though feels that she does need some for the abdominal discomfort. She understands that the narcotics may actually worsen her situation. We will reassess for discharge in the morning. Perhaps we can have the social work discharge team [facility] to get her a follow-up appointment there. The Prograf level will take some time. Time spent today is 30 minutes with greater than 50% in counseling and coordination of care most of which in discussion with patient and GI doc regarding care plan and progress. Problems: (1) Intractable abdominal pain (2) Nausea, vomiting, and diarrhea (3) Hypokalemia VITAL SIGNS Vital Signs/I&O: Vital Signs Date Time Temp Pulse Resp B/P (MAP) Pulse Ox O2 Delivery O2 Flow Rate FiO2 05/01/21 08:57 19 Room Air 05/01/21 08:57 79 124/70 05/01/21 07:00 98.6 96 98.6 I & O 04/30/21 04/30/21 05/01/21 15:00 23:00 07:00 Intake Total 600 ml 600 ml Balance 600 ml 600 ml In general the patient is sitting up resting in bed comfortable alert and oriented x3 no acute distress. She has a nearly full lunch tray in front of her HEENT exam is notable for poor dentition. The patient is nearly blind. Neck is soft and supple no adenopathy or thyromegaly noted Chest is clear to auscultation Heart S1-S2 normal regular rate and rhythm no murmurs or gallops are noted Abdomen obese she is guarding it though it is soft nondistended no masses or organomegaly noted Extremity exam is unremarkable for acute abnormality ALLERGIES Allergies: Allergies Coded Allergies Type Severity Reaction Last Updated Verified Iodine and Iodide Containing Produc Allergy Intermediate 05/17/19 Yes dicyclomine Allergy Intermediate 05/17/19 Yes fentanyl Allergy Intermediate 05/17/19 Yes hydrocodone Allergy Intermediate 05/17/19 Yes ketorolac Allergy Intermediate Hives 05/17/19 Yes levofloxacin Allergy Intermediate 05/17/19 Yes meperidine Allergy Intermediate 05/17/19 Yes oxycodone Allergy Intermediate HIVES, HALLUCINATIONS 08/26/20 Yes tramadol Allergy Intermediate 05/17/19 Yes MEDS Medications: Current Medications Medications (Trade) Dose Ordered Sig/Cait Start Time Stop Time Status Last Admin Dose Admin Albuterol Sulfate (Ventolin Neb Soln) 2.5 mg PRN Q6HRS PRN 04/30/21 10:15 Amlodipine Besylate (Norvasc) 5 mg DAILY 05/01/21 09:00 05/01/21 08:57 Magnesium Oxide (Magnesium Oxide) 400 mg DAILY 04/30/21 11:00 05/01/21 08:56 Magnesium Sulfate/ Dextrose 100 ml @ 100 mls/hr 1X ONCE 04/29/21 22:15 04/29/21 23:14 DC 04/30/21 02:00 Morphine Sulfate (Morphine Sulfate) 2 mg PRN Q2HR PRN 05/01/21 03:15 05/01/21 08:57 Ondansetron HCl (Zofran) 4 mg PRN Q4HRS PRN 04/30/21 10:00 05/01/21 10:18 Potassium Bicarbonate (Potassium Effervescent Tablet) 40 meq 1X ONCE 04/29/21 22:15 04/29/21 22:16 DC 04/29/21 22:38 Potassium Chloride/Water 100 ml @ 50 mls/hr Q2H 04/29/21 22:15 04/30/21 02:14 DC 04/30/21 00:15 Potassium Chloride (Klor-Con) 40 meq BID WMEALS 05/01/21 18:00 Sodium Chloride 1,000 ml @ 75 mls/hr [id number] 04/29/21 22:15 04/30/21 22:14 DC 04/30/21 07:59 Tacrolimus (Prograf) 2 mg BID 04/30/21 11:00 05/01/21 08:56 Current Medications Medications (Trade) Dose Ordered Sig/Cait Route PRN Reason Start Time Stop Time Status Last Admin Dose Admin Amlodipine Besylate (Norvasc) 5 mg DAILY PO 05/01/21 09:00 05/01/21 08:57 Potassium Chloride (Klor-Con) 20 meq BID PO 04/30/21 21:00 05/01/21 11:17 DC 05/01/21 08:57 Morphine Sulfate (Morphine Sulfate) 2 mg PRN Q2HR PRN IVP PAIN 05/01/21 03:15 05/01/21 08:57 ASSESSMENT & PLAN A&P Plan as noted above This note was created using [employer] and may have omissions and/or errors due to the nature of real-time voice 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 Justifications for Admission Other Justification BRUCE HERRING MD May 01, 2021 13:09
[2021-05-01] MEDS ORDERED: oxyCODONE IR 5 MG TABLET PO PRN (13:15)
[2021-05-01] MEDS ORDERED: MORPHINE IR 15 MG TABLET PO PRN (13:30)
[2021-05-01 15:00] VITALS: BP 114/66
[2021-05-01 15:48] LABS: CREATININE 1.1 mg/dL (0.6-1.0); GFR 54.7; MAGNESIUM 1.8 mg/dL (1.8-2.4); POTASSIUM 3.5 mmol/L (3.5-5.1)
[2021-05-01] MEDS: POTASSIUM CHLORIDE 20 MEQ TABLET.ER. PO SCH (17:41)
[2021-05-01] MEDS: ONDANSETRON ODT 4 MG TAB.RAPDIS. PO PRN (17:41)
[2021-05-01] MEDS: PANTOPRAZOLE 40 MG TABLET.DR. PO SCH (17:41)
[2021-05-01 19:00] VITALS: BP 132/74
[2021-05-01] MEDS: diphenhydrAMINE HCL 25 MG CAPSULE PO PRN (21:18)
[2021-05-01 23:00] VITALS: BP 128/80
[2021-05-02] MEDS: ONDANSETRON ODT 4 MG TAB.RAPDIS. PO PRN ×2 (00:06→15:56)
[2021-05-02] MEDS: MORPHINE IR 15 MG TABLET PO PRN ×2 (00:06→17:56)
[2021-05-02 02:44] VITALS: BP 148/86
[2021-05-02 07:00] VITALS: BP 136/77
[2021-05-02] MEDS: MAGNESIUM OXIDE 400 MG TABLET PO SCH (09:02)
[2021-05-02] MEDS: POTASSIUM CHLORIDE 20 MEQ TABLET.ER. PO SCH ×2 (09:02→17:56)
[2021-05-02] MEDS: TACROLIMUS 0.5 MG CAPSULE. PO SCH ×2 (09:02→21:39)
[2021-05-02] MEDS: PANTOPRAZOLE 40 MG TABLET.DR. PO SCH (09:03)
[2021-05-02 10:22] LABS: BASO % 1 % (0-3); EOS # 0.2 x10^3/uL (0.0-0.7); EOS % 7 % (0-3); HEMATOCRIT 36.3 % (36.0-47.0); HEMOGLOBIN 12.3 g/dL (12.0-15.5); LYMPH # 1.3 x10^3/uL (1.0-4.8); LYMPH % 36 % (24-48); MEAN CORPUSCULAR HEMOGLOBIN 31 pg (25-35); MEAN CORPUSCULAR HGB CONC 34 g/dL (31-37); MEAN CORPUSCULAR VOLUME 92 fL (79-100); MONO # 0.4 x10^3/uL (0.0-1.1); MONO % 11 % (0-9); NEUT # 1.6 x10^3/uL (1.8-7.7); NEUT % 45 % (31-73); PLATELET COUNT 202 x10^3/uL (140-400); RED BLOOD COUNT 3.97 x10^6/uL (3.50-5.40); RED CELL DISTRIBUTION WIDTH 15.3 % (11.5-14.5); WHITE BLOOD COUNT 3.6 x10^3/uL (4.0-11.0)
[2021-05-02 10:26] LABS: ALBUMIN 2.8 g/dL (3.4-5.0); ALBUMIN/GLOBULIN RATIO 0.7 (1.0-1.7); CALCIUM 7.4 mg/dL (8.5-10.1); CREATININE 1.1 mg/dL (0.6-1.0); GFR 54.7; POTASSIUM 4.1 mmol/L (3.5-5.1); TOTAL PROTEIN 6.6 g/dL (6.4-8.2)
--- NOTE | 2021-05-02 10:37 | PDOC ---
Date of Service: DATE: 05/02/21 TIME: 10:28 Subjective: Subjective: Eating but says only able to because she just got pain meds. Says PCP Dr. Burroughs manages Prograf, also takes "the purple pill" PRN. Denies diarrhea. Sometimes takes morphine at home for hip pain but it also helps abdominal pain. Objective: Objective: No stools charted. When we last saw was supposed to be referred to hepatology in [place]. Vital Signs: Vital Signs Date Time Temp Pulse Resp B/P (MAP) Pulse Ox O2 Delivery O2 Flow Rate FiO2 05/02/21 09:03 83 136/77 05/02/21 07:00 97.8 18 97 Room Air 97.8 Labs: Laboratory Tests Test 05/01/21 15:15 05/02/21 09:31 Sodium Level 139 mmol/L Potassium Level 3.5 mmol/L Chloride Level 104 mmol/L Carbon Dioxide Level 27 mmol/L Anion Gap 8 Blood Urea Nitrogen 7 mg/dL Creatinine 1.1 mg/dL Estimated GFR (Cockcroft-Gault) 54.7 Glucose Level 101 mg/dL Calcium Level 7.0 mg/dL Magnesium Level 1.8 mg/dL White Blood Count 3.6 x10^3/uL Red Blood Count 3.97 x10^6/uL Hemoglobin 12.3 g/dL Hematocrit 36.3 % Mean Corpuscular Volume 92 fL Mean Corpuscular Hemoglobin 31 pg Mean Corpuscular Hemoglobin Concent 34 g/dL Red Cell Distribution Width 15.3 % Platelet Count 202 x10^3/uL Neutrophils (%) (Auto) 45 % Lymphocytes (%) (Auto) 36 % Monocytes (%) (Auto) 11 % Eosinophils (%) (Auto) 7 % Basophils (%) (Auto) 1 % Neutrophils # (Auto) 1.6 x10^3/uL Lymphocytes # (Auto) 1.3 x10^3/uL Monocytes # (Auto) 0.4 x10^3/uL Eosinophils # (Auto) 0.2 x10^3/uL Basophils # (Auto) 0.0 x10^3/uL Imaging: CT A/P 04/29 IMPRESSION: No acute process identified within the abdomen or pelvis. PE: GEN: NAD - eating breakfast with enthusiasm HEENT: poor dentition LUNGS: CTAB HEART: RRR ABD: BS+, soft, vague/non-specific tenderness (?muscular) NEURO/PSYCH: A & O 3 A/P: N/v, diarrhea - resolving - seems to be a recurrent issue Abd pain Hypokalemia, [place] - resolved Mildly elevated AST, elevated Alk Phos - stable/better than past S/p liver transplant on Prograf H/o GERD (on PPI PRN at home), IBS -- Tolerating diet. Consider DC soon - needs hepatology follow-up as we have discussed in the past. Justicifation of Admission Dx: Justifications for Admission: Justification of Admission Dx: Yes KELSEY STILES May 02, 2021 10:37
--- NOTE | 2021-05-02 10:43 | NUR ---
SW following. Discussed with RN, pt from home, room air, GI soft. GI following. RN advised no SW needs at this time, possible discharge home today. SW will continue to follow.
[2021-05-02 11:00] VITALS: BP 119/45
[2021-05-02 15:00] VITALS: BP 122/73
--- NOTE | 2021-05-02 18:26 | PDOC ---
[facility] PROGRESS NOTE Date of Service DOS: DATE: 05/02/21 TIME: 18:24 Chief Complaint Chief Complaint Assessment and plan from previous hospitalist plan is not much change. he tells me that the hepatology group has not accepted her back in care they have tried and her primary care physician has worked on trying to get her back in there as well. I mentioned [facility] hepatology and she thought that might be a good idea though told Dr. lAmaraz that she does not believe she can go there either. We will transition her medications from intravenous to oral so that she will have a better idea on how she will feel once she discharges home. She has not used ondansetron at home that does seem to help. She is trying to minimize the narcotics though feels that she does need some for the abdominal discomfort. She understands that the narcotics may actually worsen her situation. Perhaps we can have the social work discharge team reach out to [facility] hepatology to try to get her a follow-up appointment there. The Prograf level will take some time. History of Present Illness History of Present Illness 05/02 Patient evaluated examined at bedside. Resting in bed endorsing ongoing abdominal pain but improving. We will continue to closely monitor this. P.o. intake as tolerated. Can likely DC in next day or 2. Discussed with bedside RN. Vitals/I&O Vitals/I&O: Vital Signs Date Time Temp Pulse Resp B/P (MAP) Pulse Ox O2 Delivery O2 Flow Rate FiO2 05/02/21 17:56 18 Room Air 05/02/21 15:00 98.1 84 122/73 (89) 95 98.1 I & O 05/01/21 05/01/21 05/02/21 15:00 23:00 07:00 Intake Total 120 ml 1550 ml 480 ml Balance 120 ml 1550 ml 480 ml Physical Exam General: Alert, Oriented X3, Cooperative Heart: Regular rate Lungs: Clear Abdomen: Normal bowel sounds, Soft, No tenderness Extremities: No edema, Normal pulses Skin: No significant lesion Labs Labs: Laboratory Tests Test 05/02/21 09:31 White Blood Count 3.6 x10^3/uL (4.0-11.0) Red Blood Count 3.97 x10^6/uL (3.50-5.40) Hemoglobin 12.3 g/dL (12.0-15.5) Hematocrit 36.3 % (36.0-47.0) Mean Corpuscular Volume 92 fL (79-100) Mean Corpuscular Hemoglobin 31 pg (25-35) Mean Corpuscular Hemoglobin Concent 34 g/dL (31-37) Red Cell Distribution Width 15.3 % (11.5-14.5) Platelet Count 202 x10^3/uL (140-400) Neutrophils (%) (Auto) 45 % (31-73) Lymphocytes (%) (Auto) 36 % (24-48) Monocytes (%) (Auto) 11 % (0-9) Eosinophils (%) (Auto) 7 % (0-3) Basophils (%) (Auto) 1 % (0-3) Neutrophils # (Auto) 1.6 x10^3/uL (1.8-7.7) Lymphocytes # (Auto) 1.3 x10^3/uL (1.0-4.8) Monocytes # (Auto) 0.4 x10^3/uL (0.0-1.1) Eosinophils # (Auto) 0.2 x10^3/uL (0.0-0.7) Basophils # (Auto) 0.0 x10^3/uL (0.0-0.2) Sodium Level 136 mmol/L (136-145) Potassium Level 4.1 mmol/L (3.5-5.1) Chloride Level 101 mmol/L (98-107) Carbon Dioxide Level 26 mmol/L (21-32) Anion Gap 9 (6-14) Blood Urea Nitrogen 5 mg/dL (7-20) Creatinine 1.1 mg/dL (0.6-1.0) Estimated GFR (Cockcroft-Gault) 54.7 BUN/Creatinine Ratio 5 (6-20) Glucose Level 102 mg/dL (70-99) Calcium Level 7.4 mg/dL (8.5-10.1) Total Bilirubin 1.0 mg/dL (0.2-1.0) Aspartate Amino Transf (AST/SGOT) 55 U/L (15-37) Alanine Aminotransferase (ALT/SGPT) 18 U/L (14-59) Alkaline Phosphatase 260 U/L (46-116) Total Protein 6.6 g/dL (6.4-8.2) Albumin 2.8 g/dL (3.4-5.0) Albumin/Globulin Ratio 0.7 (1.0-1.7) Assessment and Plan Assessmemt and Plan Problems Medical Problems: (1) Hypokalemia Status: Acute (2) Nausea, vomiting, and diarrhea Status: Acute Comment Review of Relevant I have reviewed the following items anu (where applicable) has been applied. Medications: Current Medications Medications (Trade) Dose Ordered Sig/Cait Route PRN Reason Start Time Stop Time Status Last Admin Dose Admin Morphine Sulfate (Morphine Ir) 15 mg PRN Q6HRS PRN PO MODERATE TO SEVERE PAIN 05/01/21 20:45 05/02/21 17:56 Diphenhydramine HCl (Benadryl) 25 mg PRN Q6HRS PRN PO ITCHING 05/01/21 20:45 05/01/21 21:18 Justifications for Admission Other Justification AMBER PINEDA MD May 02, 2021 18:26
[2021-05-02 19:00] VITALS: BP 124/84
[2021-05-02 23:00] VITALS: BP 135/78
[2021-05-03] MEDS: ONDANSETRON ODT 4 MG TAB.RAPDIS. PO PRN ×4 (00:53→23:53)
[2021-05-03] MEDS: MORPHINE IR 15 MG TABLET PO PRN ×4 (00:54→20:45)
[2021-05-03 03:00] VITALS: BP 146/87
[2021-05-03] MEDS: diphenhydrAMINE HCL 25 MG CAPSULE PO PRN ×2 (04:20→23:52)
[2021-05-03 07:00] VITALS: BP 130/80
[2021-05-03] MEDS: POTASSIUM CHLORIDE 20 MEQ TABLET.ER. PO SCH ×2 (07:43→17:29)
[2021-05-03] MEDS: PANTOPRAZOLE 40 MG TABLET.DR. PO SCH (07:43)
[2021-05-03] MEDS: MAGNESIUM OXIDE 400 MG TABLET PO SCH (07:44)
[2021-05-03] MEDS: TACROLIMUS 0.5 MG CAPSULE. PO SCH ×2 (07:46→21:07)
[2021-05-03] MEDS ORDERED: ONDA4TAB12 PO (07:51)
[2021-05-03] MEDS ORDERED: MORP15TA PO (07:51)
[2021-05-03] MEDS ORDERED: PANT40TA77 PO (07:51)
--- NOTE | 2021-05-03 08:01 | PDOC3 ---
[facility]-Discharge Summary Date of Admission: Date of Admission: Apr 30, 2021 Date of Discharge: Date of Discharge: May 03, 2021 Admission Diagnosis: Problems: (1) History of liver transplant (2) Intractable abdominal pain (3) Nausea, vomiting, and diarrhea (4) Hypokalemia Hospital Course: Hospital Course: Chief Complaint Assessment and plan from previous hospitalist plan is not much change. he tells me that the hepatology group has not accepted her back in care they have tried and her primary care physician has worked on trying to get her back in there as well. I mentioned [facility] hepatology and she thought that might be a good idea though told Dr. Almaraz that she does not believe she can go there either. We will transition her medications from intravenous to oral so that she will have a better idea on how she will feel once she discharges home. She has not used ondansetron at home that does seem to help. She is trying to minimize the narcotics though feels that she does need some for the abdominal discomfort. She understands that the narcotics may actually worsen her situation. Perhaps we can have the social work discharge team reach out to [facility]ology to try to get her a follow-up appointment there. The Prograf level will take some time. History of Present Illness History of Present Illness 05/02 Patient evaluated examined at bedside. Resting in bed endorsing ongoing abdominal pain but improving. We will continue to closely monitor this. P.o. intake as tolerated. Can likely DC in next day or 2. Discussed with bedside RN. 05/03 Patient evaluated at bedside. Resting in bed abdominal pain still present but improving. Tolerating p.o. intake with the pain medicine and Zofran. Can be discharged home today. Greater than 30 minutes spent on this discharge. Discussed at length the importance of follow-up with a supervisor cd area. Says that she was declined by [facility] and will not take her back. She is interested in following up in [place]. Will try to provide her information for their clinic. 21min ACP Disposition: Disposition/Orders: D/C to Home Activity: Activity: Resume previous activity Diet: Diet: Regular Medications: Home Meds Active Scripts Pantoprazole Sodium (PANTOPRAZOLE SODIUM ) 40 Mg Tablet., 40 MG PO DAILYAC for gerd for 30 Days, #30 TAB.SR Prov:AMBER PINEDA MD 05/03/21 Ondansetron (ONDANSETRON ODT) 4 Mg Tab.rapdis, 4 MG PO PRN Q6HRS PRN for NAUSEA/VOMITING for 15 Days, #45 TAB Prov:AMBER PINEDA MD 05/03/21 Morphine Sulfate (MORPHINE SULFATE) 15 Mg Tablet, 15 MG PO PRN Q6HRS PRN for MODERATE TO SEVERE PAIN for 10 Days, #30 TAB Prov:AMBER PINEDA MD 05/03/21 Reported Medications Amlodipine Besylate (AMLODIPINE BESYLATE) 5 Mg Tablet, 5 MG PO DAILY for htn, TAB 04/30/21 Albuterol Sulfate (PROAIR HFA INHALER) 8.5 Gm Hfa.aer.ad, 2 PUFF INH PRN Q6HRS PRN for SHORTNESS OF BREATH, EACH 0 Refills 08/25/20 Potassium Chloride (KLOR-CON 10) 10 Meq Tablet.er, PO DAILY for supplement, TAB 08/25/20 Magnesium Oxide (MAGNESIUM OXIDE) 400 Mg Tablet, 400 MG PO DAILY for supplement, TAB 08/25/20 Tacrolimus (PROGRAF) 1 Mg Capsule, 2 MG PO BID for liver transplant, CAP 08/25/20 Scheduled Amlodipine Besylate (Amlodipine Besylate), 5 MG PO DAILY, (Reported) Magnesium Oxide (Magnesium Oxide), 400 MG PO DAILY, (Reported) Pantoprazole Sodium (Pantoprazole Sodium ), 40 MG PO DAILYAC Potassium Chloride (Klor-Con 10), Unknown Dose PO DAILY, (Reported) Tacrolimus (Prograf), 2 MG PO BID, (Reported) Scheduled PRN Albuterol Sulfate (Proair Hfa Inhaler), 2 PUFF INH PRN Q6HRS PRN for SHORTNESS OF BREATH, (Reported) Morphine Sulfate (Morphine Sulfate), 15 MG PO PRN Q6HRS PRN for MODERATE TO SEVERE PAIN Ondansetron (Ondansetron Odt), 4 MG PO PRN Q6HRS PRN for NAUSEA/VOMITING Justicifation of Admission Dx: Justifications for Admission: Justification of Admission Dx: Yes AMBER PINEDA MD May 03, 2021 08:01
--- NOTE | 2021-05-03 09:29 | NUR ---
SW following. Chart reviewed, discharge order for home with self care.
--- NOTE | 2021-05-03 09:33 | PDOC ---
Date of Service: DATE: 05/03/21 TIME: 09:29 Subjective: Subjective: Soft stool yesterday, no diarrhea. Tolerating diet. Says she was given the number to [facility]. I confirmed she was already referred here (per previous encounter) - she says "it's been a year and they haven't called." She'd like to have outpt scopes - thinks last done >5 years ago. Objective: Vital Signs: Vital Signs Date Time Temp Pulse Resp B/P (MAP) Pulse Ox O2 Delivery O2 Flow Rate FiO2 05/03/21 07:56 99 Room Air 05/03/21 07:44 18 146/87 05/03/21 07:00 97.5 16 97.5 Labs: Laboratory Tests Test 05/02/21 09:31 White Blood Count 3.6 x10^3/uL Red Blood Count 3.97 x10^6/uL Hemoglobin 12.3 g/dL Hematocrit 36.3 % Mean Corpuscular Volume 92 fL Mean Corpuscular Hemoglobin 31 pg Mean Corpuscular Hemoglobin Concent 34 g/dL Red Cell Distribution Width 15.3 % Platelet Count 202 x10^3/uL Neutrophils (%) (Auto) 45 % Lymphocytes (%) (Auto) 36 % Monocytes (%) (Auto) 11 % Eosinophils (%) (Auto) 7 % Basophils (%) (Auto) 1 % Neutrophils # (Auto) 1.6 x10^3/uL Lymphocytes # (Auto) 1.3 x10^3/uL Monocytes # (Auto) 0.4 x10^3/uL Eosinophils # (Auto) 0.2 x10^3/uL Basophils # (Auto) 0.0 x10^3/uL Sodium Level 136 mmol/L Potassium Level 4.1 mmol/L Chloride Level 101 mmol/L Carbon Dioxide Level 26 mmol/L Anion Gap 9 Blood Urea Nitrogen 5 mg/dL Creatinine 1.1 mg/dL Estimated GFR (Cockcroft-Gault) 54.7 BUN/Creatinine Ratio 5 Glucose Level 102 mg/dL Calcium Level 7.4 mg/dL Total Bilirubin 1.0 mg/dL Aspartate Amino Transf (AST/SGOT) 55 U/L Alanine Aminotransferase (ALT/SGPT) 18 U/L Alkaline Phosphatase 260 U/L Total Protein 6.6 g/dL Albumin 2.8 g/dL Albumin/Globulin Ratio 0.7 PE: GEN: NAD - breakfast 100% consumed LUNGS: CTAB HEART: RRR ABD: S/ND/NT NEURO/PSYCH: A & O 3 A/P: N/v, diarrhea - recurrent - none since admission Abd pain - chronic Mildly elevated AST, elevated Alk Phos, s/p liver transplant on Prograf, non- compliant w/ hepatology follow-up H/o GERD and IBS -- DC per primary. Again encouraged hepatology follow-up. Outpt scopes. Justicifation of Admission Dx: Justifications for Admission: Justification of Admission Dx: Yes KELSEY STILES May 03, 2021 09:33
[2021-05-03 11:00] VITALS: BP 128/82
[2021-05-03 15:00] VITALS: BP 110/71
[2021-05-03] MEDS: MORPHINE SULFATE 2 MG/ML INJ. IVP PRN ×2 (17:28→23:52)
[2021-05-03 19:00] VITALS: BP 137/88
[2021-05-03 23:01] VITALS: BP 130/82
[2021-05-04 03:00] VITALS: BP 142/90
[2021-05-04] MEDS: ONDANSETRON ODT 4 MG TAB.RAPDIS. PO PRN ×3 (05:55→17:34)
[2021-05-04] MEDS: MORPHINE IR 15 MG TABLET PO PRN ×3 (05:55→17:34)
[2021-05-04 07:00] VITALS: BP 138/80
[2021-05-04] MEDS: PANTOPRAZOLE 40 MG TABLET.DR. PO SCH (08:36)
[2021-05-04] MEDS: MAGNESIUM OXIDE 400 MG TABLET PO SCH (08:37)
[2021-05-04] MEDS: TACROLIMUS 0.5 MG CAPSULE. PO SCH (08:37)
[2021-05-04] MEDS: POTASSIUM CHLORIDE 20 MEQ TABLET.ER. PO SCH ×2 (08:37→17:37)
[2021-05-04] MEDS: MORPHINE SULFATE 2 MG/ML INJ. IVP PRN ×2 (08:38→13:36)
--- NOTE | 2021-05-04 09:29 | PDOC ---
[employer] PROGRESS NOTE Date of Service DOS: DATE: 05/04/21 TIME: 09:24 Chief Complaint Chief Complaint Assessment and plan from previous hospitalist plan is not much change. he tells me that the hepatology group has not accepted her back in care they have tried and her primary care physician has worked on trying to get her back in there as well. I mentioned [facility] hepatology and she thought that might be a good idea though told Dr. Almaraz that she does not believe she can go there either. We will transition her medications from intravenous to oral so that she will have a better idea on how she will feel once she discharges home. She has not used ondansetron at home that does seem to help. She is trying to minimize the narcotics though feels that she does need some for the abdominal discomfort. She understands that the narcotics may actually worsen her situation. Perhaps we can have the social work discharge team reach out to [facility] hepatology to try to get her a follow-up appointment there. The Prograf level will take some time. History of Present Illness History of Present Illness 05/03 Patient evaluated examined at bedside. Will discharge yesterday due to acute pain episode that required IV morphine. This morning she said she was doing well eating pain controlled. She did mention something about an abdominal ultrasound today? If pain controlled and okay with GI still can discharge today. Note her pain med narcotic scripts have already been sent to her pharmacy. 05/02 Patient evaluated examined at bedside. Resting in bed endorsing ongoing abdominal pain but improving. We will continue to closely monitor this. P.o. intake as tolerated. Can likely DC in next day or 2. Discussed with bedside RN. Vitals/I&O Vitals/I&O: Vital Signs Date Time Temp Pulse Resp B/P (MAP) Pulse Ox O2 Delivery O2 Flow Rate FiO2 05/04/21 08:38 20 05/04/21 08:37 86 142/90 05/04/21 07:17 Room Air 05/04/21 07:00 98.0 93 98.0 I & O 05/03/21 05/03/21 05/04/21 15:00 23:00 07:00 Intake Total 300 ml Output Total 1 ml Balance -1 ml 300 ml Physical Exam General: Alert, Oriented X3, Cooperative Heart: Regular rate Lungs: Clear Abdomen: Normal bowel sounds, Soft, No tenderness Extremities: No edema, Normal pulses Skin: No significant lesion Assessment and Plan Assessmemt and Plan Problems Medical Problems: (1) Hypokalemia Status: Acute (2) Nausea, vomiting, and diarrhea Status: Acute Comment Review of Relevant I have reviewed the following items anu (where applicable) has been applied. Medications: Current Medications Medications (Trade) Dose Ordered Sig/Cait Route PRN Reason Start Time Stop Time Status Last Admin Dose Admin Morphine Sulfate (Morphine Sulfate) 2 mg PRN Q2HR PRN IVP PAIN 05/03/21 17:00 05/04/21 08:38 Justifications for Admission Other Justification AMBER PINEDA MD May 04, 2021 09:29
--- NOTE | 2021-05-04 09:51 | PDOC ---
Date of Service: DATE: 05/04/21 TIME: 09:47 Subjective: Subjective: Abd pain (upper/middle) worse yesterday afternoon/evening - DC held. Stooling and eating without issue. Doesn't like hepatologists at [facility] "wouldn't see me." "I keep trying to get scopes but no one does them" and "I haven't had an ultrasound in awhile." Objective: Vital Signs: Vital Signs Date Time Temp Pulse Resp B/P (MAP) Pulse Ox O2 Delivery O2 Flow Rate FiO2 05/04/21 08:38 20 05/04/21 08:37 86 142/90 05/04/21 07:17 Room Air 05/04/21 07:00 98.0 93 98.0 PE: GEN: NAD LUNGS: CTAB HEART: RRR ABD: epigastric discomfort NEURO/PSYCH: A & O 3 A/P: N/v, diarrhea - resolved Abd pain - chronic, worse yesterday so DC held S/p liver transplant on Prograf H/o GERD and IBS -- Reviewed w/ Dr. Peterson - recommendation for outpt MRCP and liver biopsy. Can also arrange EGD and colonoscopy. Really needs hepatology follow-up. Dc per primary. Justicifation of Admission Dx: Justifications for Admission: Justification of Admission Dx: Yes KELSEY STILES May 04, 2021 09:51
[2021-05-04 10:47] VITALS: BP 121/71
[2021-05-04] MEDS: diphenhydrAMINE HCL 25 MG CAPSULE PO PRN ×2 (12:00→17:34)
[2021-05-04 15:00] VITALS: BP 125/74
== END 2021-05-04 18:40 | disposition home or self-care (01) | DRG 391 ==
LOC: ER 17:55 → ED HOLD 22:50 → 2 NORTH 04-30 00:51 → OBSVTOIN 04-30 22:17 → 4 NORTH 05-02 19:04
PROVIDERS: ADMIT Internal Medicine; ATTEND Internal Medicine
DX: K21.9 Gastro-esophageal reflux disease without esophagitis (principal); N17.0 Acute kidney failure with tubular necrosis; Z94.4 Liver transplant status; E87.6 Hypokalemia; I50.9 Heart failure, unspecified; J45.909 Unspecified asthma, uncomplicated; M81.0 Age-related osteoporosis without current pathological fracture; Z90.49 Acquired absence of other specified parts of digestive tract; Z91.19 Patient's noncompliance with other medical treatment and regimen
CPT/HCPCS: 36415; 74176; 80048; 80053; 80197; 81001; 83690; 83735; 85025; 85610; 93005; 94760; 96361; 96365; 96366; 96375; G0378; G0379; J2270; J2405; J3475; J3480; J7030; J7040; J7507; 99285-25; Q0163

== ENCOUNTER 2021-07-19 15:07 | Emergency (ER) | payer OTHER ==
[~2021-07-19] VITALS: Ht 170.2 cm; Wt 101.8 kg
[~2021-07-19 15:07] MED LIST changes: +AMLO-186 PO; +MORP15TA PO; +ONDA4TAB12 PO; +PANT40TA77 PO; +ZOLP5TAB PO
[2021-07-19] MEDS ORDERED: ONDANSETRON PF 4 MG/2 ML VIAL. IVP ONE (15:30)
[2021-07-19] MEDS ORDERED: IV NORMAL SALINE 1000ML BAG 1,000 ML IV ONE (15:30)
[2021-07-19] MEDS ORDERED: MORPHINE SULFATE 4 MG/ML INJ. IVP ONE ×3 (15:30→19:30)
--- NOTE | 2021-07-19 15:33 | PHYS DOC ---
Past Medical History Past Medical History: Asthma, CHF, IBS Additional Past Medical Histor: LIVER TRANSPLANT, OSTEOPOROSIS Past Surgical History: Other Additional Past Surgical Histo: LIVER TRANSPLANT, CATARACT Smoking Status: Never Smoker Alcohol Use: None General Adult EDM: Chief Complaint: ABDOMINAL PAIN HPI: HPI: Patient is a 41 year old female with a history of liver transplant in 1998, IBS, CHF, who presents to the ED today complaining of generalized abdominal pain rated at 10 out of 10 described as sharp and intermittent, symptoms for 2 weeks. Also complaining of bloody stools for 2 weeks. Patient denies any nausea, vomiting. Reports diarrhea. Denies anything exacerbating or relieving her pain. Patient was in the ED last month for the exact same complaint Review of Systems: Review of Systems: Constitutional: Denies fever or chills. [] Eyes: Denies change in visual acuity. [] HENT: Denies nasal congestion or sore throat. [] Respiratory: Denies cough or shortness of breath. [] Cardiovascular: Denies chest pain or edema. [] GI: Reports generalized abdominal pain with bloody stools, denies nausea, vomiting, bloody stools or diarrhea. [] : Denies dysuria. [] Musculoskeletal: Denies back pain or joint pain. [] Integument: Denies rash. [] Neurologic: Denies headache, focal weakness or sensory changes. [] Psychiatric: Denies depression or anxiety. [] Heart Score: C/O Chest Pain: N/A Risk Factors: Risk Factors: DM, Current or recent (<one month) smoker, HTN, HLP, family history of CAD, obesity. Risk Scores: Score 0 - 3: 2.5% MACE over next 6 weeks - Discharge Home Score 4 - 6: 20.3% MACE over next 6 weeks - Admit for Clinical Observation Score 7 - 10: 72.7% MACE over next 6 weeks - Early Invasive Strategies Current Medications: Current Medications Medications (Trade) Dose Ordered Sig/Cait Start Time Stop Time Status Last Admin Dose Admin Morphine Sulfate (Morphine Sulfate) 4 mg 1X ONCE 07/19/21 15:30 07/19/21 15:31 Ondansetron HCl (Zofran) 4 mg 1X ONCE 07/19/21 15:30 07/19/21 15:31 Sodium Chloride 1,000 ml @ 1,000 mls/hr 1X ONCE 07/19/21 15:30 5/24/22 16:29 Allergies: Allergies: Allergies Coded Allergies Type Severity Reaction Last Updated Verified Iodine and Iodide Containing Produc Allergy Intermediate 05/17/19 Yes dicyclomine Allergy Intermediate 05/17/19 Yes fentanyl Allergy Intermediate 05/17/19 Yes hydrocodone Allergy Intermediate 05/17/19 Yes ketorolac Allergy Intermediate Hives 05/17/19 Yes levofloxacin Allergy Intermediate 05/17/19 Yes meperidine Allergy Intermediate 05/17/19 Yes oxycodone Allergy Intermediate HIVES, HALLUCINATIONS 08/26/20 Yes tramadol Allergy Intermediate 05/17/19 Yes Physical Exam: PE: Constitutional: Well developed, well nourished, no acute distress, non-toxic appearance. [] HENT: Normocephalic, atraumatic, bilateral external ears normal, oropharynx moist, no oral exudates, nose normal. [] Eyes: PERRLA, EOMI, conjunctiva normal, no discharge. [] Neck: Normal range of motion, no tenderness, supple, no stridor. [] Cardiovascular:Heart rate regular rhythm, no murmur [] Lungs & Thorax: Bilateral breath sounds clear to auscultation [] Abdomen: Old healed surgical incision noted on the upper abdomen. Bowel sounds normal, soft, no tenderness, no masses, no pulsatile masses. [] Skin: Warm, dry, no erythema, no rash. [] Back: No tenderness, no CVA tenderness. [] Extremities: No tenderness, no cyanosis, no clubbing, ROM intact, no edema. [] Neurologic: Alert and oriented X 3, normal motor function, normal sensory function, no focal deficits noted. [] Psychologic: Affect normal, judgement normal, mood normal. [] Current Patient Data: Vital Signs: Vital Signs Date Time Temp Pulse Resp B/P (MAP) Pulse Ox O2 Delivery O2 Flow Rate FiO2 07/19/21 15:10 98.1 76 20 155/90 (111) 98 Room Air 98.1 EKG: EKG: [] Radiology/Procedures: Radiology/Procedures: []PROCEDURE: ABDOMEN COMPLETE EXAMINATION: US ABDOMEN COMPLETE CLINICAL HISTORY: Abdominal pain. History of liver transplant. TECHNIQUE: Grayscale sonographic imaging of the abdomen obtained with color Doppler imaging and spectral Doppler analysis as indicated. COMPARISON: CT abdomen/pelvis 06/20/2021 FINDINGS: Pancreas: Not visualized secondary to prominent overlying bowel gas. Liver: - Echotexture: Slightly heterogeneous - Echogenicity: Mildly increased - Lesions: None Biliary: No intrahepatic biliary duct dilation. - CBD: No images provided. - Gallbladder: Cholecystectomy. Spleen: - Craniocaudal length: 12.8 cm. - Lesions: Old calcified granulomas. Right Kidney: Grossly unremarkable on limited evaluation. - Renal length: 10.3 cm Left Kidney: Grossly unremarkable on limited evaluation. - Renal length: 12.0 cm IVC: Poorly visualized. Abdominal Aorta: Poorly visualized. Ascites: None. IMPRESSION: Limited evaluation secondary to prominent bowel gas, correlate with pending CT abdomen/pelvis. Findings suggestive of hepatic steatosis. Nonvisualized pancreas and common bile duct. Electronically signed by: Larry Ruby DO (07/19/2021 6:13 PM) [facility] DICTATED and SIGNED BY: LARRY RUBY DO DATE: 07/19/211806 Course & Med Decision Making: Course & Med Decision Making Pertinent Labs and Imaging studies reviewed. (See chart for details) This a 41-year-old female patient presenting to the ED today complaining of generalized abdominal pain with bloody stools for 2 weeks. She was in the ED last month for the similar complaint CBC with a normal WBC, normal hemoglobin and hematocrit. CMP with potassium of 3.0, patient was given oral potassium replacement. UA negative for infection, abdominal ultrasound is negative for any acute findings. She just had a CT done last month. She was discharged to home. Follow-up with her own doctor. She was also provided along GI for follow-up Rudolph Disclaimer: Rudolph Disclaimer: This electronic medical record was generated, in whole or in part, using a voice recognition dictation system. Departure Departure Impression: Primary Impression: Abdominal pain, generalized Disposition: HOME / SELF CARE / HOMELESS Condition: STABLE Referrals: UNKNOWN PCP NAME (PCP) Follow-up with your own doctor in the course of this week CARINE MENARD MD follow up in the course of this week Patient Instructions: Abdominal Pain (Nonspecific) Additional Instructions: You were evaluated in the emergency room for abdominal pain. Your work-up in the emergency room is negative for any acute findings. Your potassium was 3.0, this is slightly low but not too low to need admission to the hospital, we encourage you to increase your dietary potassium intake through foods like bananas, sweet potato. Please follow-up with your own doctor or the provided doctor next week on this week HAWA DAY APRN July 19, 2021 15:33
[2021-07-19 17:17] LABS: BACTERIA,URINE MODERATE /HPF (0-FEW); RBC,URINE 20-40 /HPF (0-2); WBC,URINE 0 /HPF (0-4)
[2021-07-19 17:18] LABS: BARBITURATES NEG (NEG); BENZODIAZEPINES NEG (NEG); CANNABINOIDS NEG (NEG); COCAINE NEG (NEG); METHADONE NEG (NEG); OPIATES POS (NEG); PHENCYCLIDINE NEG (NEG)
[2021-07-19 17:22] LABS: AMPHETAMINE/METHAMPHETAMINE NEG (NEG)
[2021-07-19 17:41] LABS: BASO % 1 % (0-3); EOS # 0.2 x10^3/uL (0.0-0.7); EOS % 4 % (0-3); HEMATOCRIT 37.3 % (36.0-47.0); HEMOGLOBIN 12.5 g/dL (12.0-15.5); LYMPH # 1.4 x10^3/uL (1.0-4.8); LYMPH % 33 % (24-48); MEAN CORPUSCULAR HEMOGLOBIN 30 pg (25-35); MEAN CORPUSCULAR HGB CONC 33 g/dL (31-37); MEAN CORPUSCULAR VOLUME 91 fL (79-100); MONO # 0.4 x10^3/uL (0.0-1.1); MONO % 10 % (0-9); NEUT # 2.2 x10^3/uL (1.8-7.7); NEUT % 53 % (31-73); PLATELET COUNT 153 x10^3/uL (140-400); RED CELL DISTRIBUTION WIDTH 13.7 % (11.5-14.5); WHITE BLOOD COUNT 4.2 x10^3/uL (4.0-11.0)
[2021-07-19 18:06] LABS: CALCIUM 8.1 mg/dL (8.5-10.1); CREATININE 0.8 mg/dL (0.6-1.0)
[2021-07-19 18:14] LABS: ALBUMIN 2.6 g/dL (3.4-5.0); ALBUMIN/GLOBULIN RATIO 0.7 (1.0-1.7); MAGNESIUM 1.5 mg/dL (1.8-2.4); TOTAL BILIRUBIN 1.3 mg/dL (0.2-1.0); TOTAL PROTEIN 6.5 g/dL (6.4-8.2)
--- NOTE | 2021-07-19 18:15 | RAD ---
EXAMINATION: US ABDOMEN COMPLETE CLINICAL HISTORY: Abdominal pain. History of liver transplant. TECHNIQUE: Grayscale sonographic imaging of the abdomen obtained with color Doppler imaging and spect ral Doppler analysis as indicated. COMPARISON: CT abdomen/pelvis 06/20/2021 FINDINGS: Pancreas: Not visualized secondary to prominent overlying bowel gas. Liver: - Echotexture: Slightly heterogeneous - Echogenicity: Mildly increased - Lesions: None Biliary: No intrahepatic biliary duct dilation. - CBD: No images provided. - Gallbladder: Cholecystectomy. Spleen: - Craniocaudal length: 12.8 cm. - Lesions: Old calcified granulomas. Right Kidney: Grossly unremarkable on limited evaluation. - Renal length: 10.3 cm Left Kidney: Grossly unremarkable on limited evaluation. - Renal length: 12.0 cm IVC: Poorly visualized. Abdominal Aorta: Poorly visualized. Ascites: None. IMPRESSION: Limited evaluation secondary to prominent bowel gas, correlate with pending CT abdomen/pelvis. Findings suggestive of hepatic steatosis. Nonvisualized pancreas and common bile duct. Electronically signed by: Larry Rivera DO (07/19/2021 6:13 PM) [facility]
[2021-07-19 19:05] VITALS: BP 136/78
[2021-07-19] MEDS ORDERED: POTASSIUM CHLORIDE 20 MEQ TABLET.ER. PO ONE (19:30)
== END 2021-07-19 20:00 | disposition home or self-care (01) ==
LOC: ER 15:07
DX: R10.84 Generalized abdominal pain (principal); K92.1 Melena; R19.7 Diarrhea, unspecified; J45.909 Unspecified asthma, uncomplicated; K58.9 Irritable bowel syndrome, unspecified; Z86.79 Personal history of other diseases of the circulatory system; Z91.041 Radiographic dye allergy status; Z88.4 Allergy status to anesthetic agent; Z88.5 Allergy status to narcotic agent; Z88.1 Allergy status to other antibiotic agents; Z88.6 Allergy status to analgesic agent; Z88.8 Allergy status to other drugs, medicaments and biological substances
CPT/HCPCS: 36415; 76700; 80053; 80307; 81001; 83690; 83735; 85025; 87086; 96361; 96374; 96375; 96376; 99285; G0480; J2270; J2405; J7030